=== PATIENT | female | born 1970 | race American Indian/Alaskan Native ===

== ENCOUNTER 2019-05-28 12:49 | Inpatient (IN) | payer MEDICARE ==
[2019-05-28] MEDS ORDERED: TYLENOL PO ONE (13:18)
[2019-05-28] MEDS ORDERED: ZOFRAN IV ONE (13:21)
[2019-05-28 13:45] LABS: Hematocrit 31.5 % (30.3-42.9); Hemoglobin 10.3 gm/dl (10.1-14.3); Mean Corpuscular HGB Conc 33 % (30-34); Mean Corpuscular Volume 90 fl (79-97); Platelet Count 132 K/mm3 (140-440); Red Blood Count 3.52 M/mm3 (3.65-5.03); Red Cell Distribution Width 16.2 % (13.2-15.2)
[2019-05-28] MEDS ORDERED: VANCOMYCIN/NS 1 GM/250 ML 1 GM/250 ML BAG IV ONE (14:04)
--- NOTE | 2019-05-28 14:08 | XRay Report ---
CHEST 1 VIEW INDICATION / CLINICAL INFORMATION: fever, cough. COMPARISON: None available. FINDINGS: SUPPORT DEVICES: Left central venous catheter HEART / MEDIASTINUM: No significant abnormality. LUNGS / PLEURA: No significant pulmonary or pleural abnormality. No pneumothorax. ADDITIONAL FINDINGS: No significant additional findings. IMPRESSION: No acute pulmonary or pleural abnormality. Left central venous catheter is in place. Signer Name: Ankit Gallagher MD FACBoyd Signed: 05/28/2019 2:04 PM Workstation Name: [id number]
--- NOTE | 2019-05-28 14:10 | Emergency Department Report ---
ED Fever HPI - General Chief Complaint: Nausea/Vomiting/Diarrhea Stated Complaint: N/V Time Seen by Provider: 05/28/19 13:32 Source: patient Exam Limitations: no limitations - History of Present Illness Initial Comments: 45-year-old female with a past medical history HIV, hypertension, end-stage renal disease on dialysis Saturday, , and Saturday presents to the hospital with complaints of fever 2 days. Patient's had headache, fever, one episode of vomiting, and a cough productive of mucus. She complains of lower back pain which is rated 10/10 in intensity and worse with movement. She also states she has not had a significant bowel movement in the last 3 weeks has had intermittent loose stool output. Early this morning she was [place] [facility] [place] generalized body aches, fever, and headache. She had a CBC, CMP, lactic acid, coags, and troponin performed. She also had a chest x-ray, EKG, a CT head performed. Diagnosed with a sinus headache (as per pt) and she was discharged on a Z-Tank. She still has prescription for Z-Tank has not yet filled the medication. She attempted to go to her dialysis center ([facility]) today but she was found to have a temperature 103.8 and vomited 2 times. He is sent here for evaluation. Patient does have HIV and takes antiretrovirals. 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 Pt does not have any urine output ED Review of Systems ROS: Stated complaint: N/V Other details as noted in HPI ED Past Medical Hx - Past Medical History Previous Medical History?: Yes Hx Hypertension: Yes Hx Renal Disease: Yes Hx HIV: Yes - Surgical History Past Surgical History?: No - Social History Smoking Status: Never Smoker Substance Use Type: None - Medications Home Medications: Home Medications Medication Instructions Recorded Confirmed Last Taken Type No Known Home Medications [No 05/28/19 05/28/19 Unknown History Reported Home Medications] ED Physical Exam - General Limitations: No Limitations - Other Other exam information: General: No limitations, patient is alert in no acute distress Head exam: Atraumatic, normocephalic Eyes exam: Normal appearance ENT: Moist mucous membrane, no thrush Neck exam: Normal inspection, full range of motion, no meningismus nontender Respiratory exam: Clear to auscultation bilateral, no wheezes, rales, crackles Cardiovascular: mild tach, reg rhythm, left chest wall dialysis access Abdomen: Soft, nondistended, and nontender, with normal bowel sounds, no rebound, or guarding Extremity: Full range of motion normal inspection no deformity Back: Normal Inspection, full range of motion, diffuse lower back tenderness including midline Neurologic: Alert, oriented x3, cranial nerves intact, no motor or sensory deficit Psychiatric: normal affect, normal mood Skin: Warm, dry, intact ED Course Vital Signs 05/28/19 05/28/19 05/28/19 12:54 12:57 13:00 Temperature 103.3 F H Pulse Rate 118 H 123 H 120 H Respiratory 28 H 26 H Rate Blood Pressure 125/66 125/66 Blood Pressure [Right] O2 Sat by Pulse 100 Oximetry 05/28/19 05/28/19 05/28/19 13:15 13:18 13:31 Temperature Pulse Rate 119 H 119 H Respiratory 28 H 24 15 Rate Blood Pressure 134/72 134/72 Blood Pressure [Right] O2 Sat by Pulse 100 Oximetry 05/28/19 05/28/19 05/28/19 13:45 14:01 14:15 Temperature Pulse Rate 118 H 122 H 119 H Respiratory 19 18 19 Rate Blood Pressure 134/72 134/72 134/72 Blood Pressure [Right] O2 Sat by Pulse Oximetry 05/28/19 05/28/19 14:31 14:45 Temperature 101.3 F H Pulse Rate 120 H 119 H Respiratory 25 H 27 H Rate Blood Pressure 134/72 Blood Pressure 134/72 [Right] O2 Sat by Pulse Oximetry - Consultations Consultation #1: 05/28/19 15:11 nephro consulted. will perform dialysis today ED Medical Decision Making - Lab Data Result diagrams: 05/28/19 13:19 05/28/19 13:19 Lab Results 05/28/19 05/28/19 05/28/19 Range/Units 13:19 13:19 13:19 WBC 9.2 (4.5-11.0) K/mm3 RBC 3.52 L (3.65-5.03) M/mm3 Hgb 10.3 (10.1-14.3) gm/dl Hct 31.5 (30.3-42.9) % MCV 90 (79-97) fl MCH 29 (28-32) pg MCHC 33 (30-34) % RDW 16.2 H (13.2-15.2) % Plt Count 132 L (140-440) K/mm3 Add Manual Diff Complete Total Counted 100 Seg Neutrophils % Tube [place]inder Hand Seg Neuts % (Manual) 92.0 H (40.0-70.0) % Band Neutrophils % 1.0 % Lymphocytes % (Manual) 3.0 L (13.4-35.0) % Reactive Lymphs % (Man) 1.0 % Monocytes % (Manual) 3.0 (0.0-7.3) % Eosinophils % (Manual) 0 (0.0-4.3) % Basophils % (Manual) 0 (0.0-1.8) % Metamyelocytes % 0 % Myelocytes % 0 % Promyelocytes % 0 % Blast Cells % 0 % Nucleated RBC % Not Reportable Seg Neutrophils # Man 8.5 H (1.8-7.7) K/mm3 Band Neutrophils # 0.1 K/mm3 Lymphocytes # (Manual) 0.3 L (1.2-5.4) K/mm3 Abs React Lymphs (Man) 0.1 K/mm3 Monocytes # (Manual) 0.3 (0.0-0.8) K/mm3 Eosinophils # (Manual) 0.0 (0.0-0.4) K/mm3 Basophils # (Manual) 0.0 (0.0-0.1) K/mm3 Metamyelocytes # 0.0 K/mm3 Myelocytes # 0.0 K/mm3 Promyelocytes # 0.0 K/mm3 Blast Cells # 0.0 K/mm3 WBC Morphology Not Reportable Hypersegmented Neuts Not Reportable Hyposegmented Neuts Not Reportable Hypogranular Neuts Not Reportable Smudge Cells Not Reportable Toxic Granulation Not Reportable Toxic Vacuolation Not Reportable Dohle Bodies Not Reportable Pelger-Huet Anomaly Not Reportable Dara Rods Not Reportable Platelet Estimate Consistent w auto Clumped Platelets Not Reportable Plt Clumps, EDTA Not Reportable Large Platelets Not Reportable Giant Platelets Rare Platelet Satelliting Not Reportable Plt Morphology Comment Not Reportable RBC Morphology Not Reportable Dimorphic RBCs Not Reportable Polychromasia Not Reportable Hypochromasia Few Poikilocytosis Not Reportable Anisocytosis Not Reportable Microcytosis Not Reportable Macrocytosis Few Spherocytes Not Reportable Pappenheimer Bodies Not Reportable Sickle Cells Not Reportable Target Cells Not Reportable Tear Drop Cells Not Reportable Ovalocytes Not Reportable Helmet Cells Not Reportable Zapata-Luckey Bodies Not Reportable [place] Rings Not Reportable Dorina Cells Not Reportable Bite Cells Not Reportable Crenated Cell Not Reportable Elliptocytes Not Reportable Acanthocytes (Spur) Not Reportable Rouleaux Not Reportable Hemoglobin C Crystals Not Reportable Schistocytes Not Reportable Malaria parasites Not Reportable Solomon Bodies Not Reportable Hem Pathologist Commnt No VBG pH (7.320-7.420) Sodium 132 L (137-145) mmol/L Potassium 5.6 H (3.6-5.0) mmol/L Chloride 89.5 L (98-107) mmol/L Carbon Dioxide 19 L (22-30) mmol/L Anion Gap 29 mmol/L BUN 66 H (7-17) mg/dL Creatinine 14.2 H (0.7-1.2) mg/dL Estimated GFR 3 ml/min BUN/Creatinine Ratio 5 % Glucose 91 (65-100) mg/dL POC Glucose (70-105) Lactic Acid 1.20 (0.7-2.0) mmol/L Calcium 8.2 L (8.4-10.2) mg/dL Total Bilirubin 0.30 (0.1-1.2) mg/dL AST 11 (5-40) units/L ALT 6 L (7-56) units/L Alkaline Phosphatase 108 (35-129) units/L Total Protein 8.3 H (6.3-8.2) g/dL Albumin 3.7 L (3.9-5) g/dL Albumin/Globulin Ratio 0.8 % Lipase (13-60) units/L HCG, Qual (Negative) 05/28/19 05/28/19 05/28/19 Range/Units 13:19 13:19 13:29 WBC (4.5-11.0) K/mm3 RBC (3.65-5.03) M/mm3 Hgb (10.1-14.3) gm/dl Hct (30.3-42.9) % MCV (79-97) fl MCH (28-32) pg MCHC (30-34) % RDW (13.2-15.2) % Plt Count (140-440) K/mm3 Add Manual Diff Total Counted Seg Neutrophils % Seg Neuts % (Manual) (40.0-70.0) % Band Neutrophils % % Lymphocytes % (Manual) (13.4-35.0) % Reactive Lymphs % (Man) % Monocytes % (Manual) (0.0-7.3) % Eosinophils % (Manual) (0.0-4.3) % Basophils % (Manual) (0.0-1.8) % Metamyelocytes % % Myelocytes % % Promyelocytes % % Blast Cells % % Nucleated RBC % Seg Neutrophils # Man (1.8-7.7) K/mm3 Band Neutrophils # K/mm3 Lymphocytes # (Manual) (1.2-5.4) K/mm3 Abs React Lymphs (Man) K/mm3 Monocytes # (Manual) (0.0-0.8) K/mm3 Eosinophils # (Manual) (0.0-0.4) K/mm3 Basophils # (Manual) (0.0-0.1) K/mm3 Metamyelocytes # K/mm3 Myelocytes # K/mm3 Promyelocytes # K/mm3 Blast Cells # K/mm3 WBC Morphology Hypersegmented Neuts Hyposegmented Neuts Hypogranular Neuts Smudge Cells Toxic Granulation Toxic Vacuolation Dohle Bodies Pelger-Huet Anomaly Dara Rods Platelet Estimate Clumped Platelets Plt Clumps, EDTA Large Platelets Giant Platelets Platelet Satelliting Plt Morphology Comment RBC Morphology Dimorphic RBCs Polychromasia Hypochromasia Poikilocytosis Anisocytosis Microcytosis Macrocytosis Spherocytes Pappenheimer Bodies Sickle Cells Target Cells Tear Drop Cells Ovalocytes Helmet Cells Zapata-Luckey Bodies [place] Rings Dorina Cells Bite Cells Crenated Cell Elliptocytes Acanthocytes (Spur) Rouleaux Hemoglobin C Crystals Schistocytes Malaria parasites Solomon Bodies Hem Pathologist Commnt VBG pH 7.356 (7.320-7.420) Sodium (137-145) mmol/L Potassium (3.6-5.0) mmol/L Chloride (98-107) mmol/L Carbon Dioxide (22-30) mmol/L Anion Gap mmol/L BUN (7-17) mg/dL Creatinine (0.7-1.2) mg/dL Estimated GFR ml/min BUN/Creatinine Ratio % Glucose (65-100) mg/dL POC Glucose (70-105) Lactic Acid (0.7-2.0) mmol/L Calcium (8.4-10.2) mg/dL Total Bilirubin (0.1-1.2) mg/dL AST (5-40) units/L ALT (7-56) units/L Alkaline Phosphatase (35-129) units/L Total Protein (6.3-8.2) g/dL Albumin (3.9-5) g/dL Albumin/Globulin Ratio % Lipase 36 (13-60) units/L HCG, Qual Negative (Negative) 05/28/19 Range/Units 14:55 WBC (4.5-11.0) K/mm3 RBC (3.65-5.03) M/mm3 Hgb (10.1-14.3) gm/dl Hct (30.3-42.9) % MCV (79-97) fl MCH (28-32) pg MCHC (30-34) % RDW (13.2-15.2) % Plt Count (140-440) K/mm3 Add Manual Diff Total Counted Seg Neutrophils % Seg Neuts % (Manual) (40.0-70.0) % Band Neutrophils % % Lymphocytes % (Manual) (13.4-35.0) % Reactive Lymphs % (Man) % Monocytes % (Manual) (0.0-7.3) % Eosinophils % (Manual) (0.0-4.3) % Basophils % (Manual) (0.0-1.8) % Metamyelocytes % % Myelocytes % % Promyelocytes % % Blast Cells % % Nucleated RBC % Seg Neutrophils # Man (1.8-7.7) K/mm3 Band Neutrophils # K/mm3 Lymphocytes # (Manual) (1.2-5.4) K/mm3 Abs React Lymphs (Man) K/mm3 Monocytes # (Manual) (0.0-0.8) K/mm3 Eosinophils # (Manual) (0.0-0.4) K/mm3 Basophils # (Manual) (0.0-0.1) K/mm3 Metamyelocytes # K/mm3 Myelocytes # K/mm3 Promyelocytes # K/mm3 Blast Cells # K/mm3 WBC Morphology Hypersegmented Neuts Hyposegmented Neuts Hypogranular Neuts Smudge Cells Toxic Granulation Toxic Vacuolation Dohle Bodies Pelger-Huet Anomaly Dara Rods Platelet Estimate Clumped Platelets Plt Clumps, EDTA Large Platelets Giant Platelets Platelet Satelliting Plt Morphology Comment RBC Morphology Dimorphic RBCs Polychromasia Hypochromasia Poikilocytosis Anisocytosis Microcytosis Macrocytosis Spherocytes Pappenheimer Bodies Sickle Cells Target Cells Tear Drop Cells Ovalocytes Helmet Cells Zapata-Luckey Bodies [place] Rings Dorina Cells Bite Cells Crenated Cell Elliptocytes Acanthocytes (Spur) Rouleaux Hemoglobin C Crystals Schistocytes Malaria parasites Solomon Bodies Hem Pathologist Commnt VBG pH (7.320-7.420) Sodium (137-145) mmol/L Potassium (3.6-5.0) mmol/L Chloride (98-107) mmol/L Carbon Dioxide (22-30) mmol/L Anion Gap mmol/L BUN (7-17) mg/dL Creatinine (0.7-1.2) mg/dL Estimated GFR ml/min BUN/Creatinine Ratio % Glucose (65-100) mg/dL POC Glucose 83 (70-105) Lactic Acid (0.7-2.0) mmol/L Calcium (8.4-10.2) mg/dL Total Bilirubin (0.1-1.2) mg/dL AST (5-40) units/L ALT (7-56) units/L Alkaline Phosphatase (35-129) units/L Total Protein (6.3-8.2) g/dL Albumin (3.9-5) g/dL Albumin/Globulin Ratio % Lipase (13-60) units/L HCG, Qual (Negative) - EKG Data -: EKG Interpreted by Nm EKG shows normal: sinus rhythm Rate: tachycardia (116) - Radiology Data Radiology results: report reviewed CHEST 1 VIEW INDICATION / CLINICAL INFORMATION: fever, cough. COMPARISON: None available. FINDINGS: SUPPORT DEVICES: Left central venous catheter HEART / MEDIASTINUM: No significant abnormality. LUNGS / PLEURA: No significant pulmonary or pleural abnormality. No pneumot horax. ADDITIONAL FINDINGS: No significant additional findings. IMPRESSION: No acute pulmonary or pleural abnormality. Left central venous catheter is in place. ABDOMEN 2 VIEWS INDICATION / CLINICAL INFORMATION: no significant bowel movement in weeks. COMPARISON: None available. FINDINGS: Nonspecific bowel gas pattern. No definite evidence of obstruction or pneumoperitoneum. - Medical Decision Making + fever, source unknown at this time IV vanc given due for dialysis today will be done by nephro received albuterol, calcium, insulin, glucose, and bicarbonate for mild hyperkalemia Hospital was informed for admission CT abdomen and pelvis pending at disposition chest and abdomen xray unremarkable - Differential Diagnosis pneumonia, osteomyelitis/abscess, viral syndrome, bacteremia, infected cath Critical Care Time: No Critical care attestation.: If time is entered above; I have spent that time in minutes in the direct care of this critically ill patient, excluding procedure time. ED Disposition Clinical Impression: Fever, ESRD needing dialysis, Hyperkalemia, HIV (human immunodeficiency virus infection) Disposition: OP ADMIT IP TO THIS HOSP Is pt being admited?: Yes Condition: Stable Time of Disposition: 14:56 (DR Dior/hosp)
[2019-05-28 14:14] LABS: Albumin 3.7 g/dL (3.9-5); Calcium 8.2 mg/dL (8.4-10.2)
[2019-05-28] MEDS ORDERED: D50W (25GM) Vial IV ONE (14:20)
[2019-05-28] MEDS ORDERED: CALCIUM GLUCONATE 1,000 MG in NACL 0.9% 100 ML IV ONE (14:20)
[2019-05-28] MEDS ORDERED: PROVENTIL IH ONE (14:20)
[2019-05-28] MEDS ORDERED: HumuLIN R IV ONE (14:20)
--- NOTE | 2019-05-28 14:27 | XRay Report ---
ABDOMEN 2 VIEWS INDICATION / CLINICAL INFORMATION: no significant bowel movement in weeks. COMPARISON: None available. FINDINGS: Nonspecific bowel gas pattern. No definite evidence of obstruction or pneumoperitoneum. Signer Name: Ankit Gallagher MD FACR Signed: 05/28/2019 2:23 PM Workstation Name: [id number]
[2019-05-28 14:39] LABS: Band Neutrophils # (Manual) 0.1 K/mm3; Basophils % (Manual) 0 % (0.0-1.8); Eosinophils % (Manual) 0 % (0.0-4.3); Total Cells Counted 100
[2019-05-28 14:40] LABS: Giant Platelets Rare; Hypochromasia Few; Macrocytosis Few; Platelet Estimate Consistent w Auto
[2019-05-28] MEDS ORDERED: D50W (25GM) Syringe IV ONE ×2 (14:53→15:00)
[2019-05-28] MEDS ORDERED: SODIUM CHLORIDE FLUSH SYRINGE 10 ML IV PRN (14:57)
[2019-05-28] MEDS ORDERED: ZOFRAN IV PRN (14:57)
[2019-05-28] MEDS ORDERED: PERCOCET 5/325 PO PRN (14:57)
--- NOTE | 2019-05-28 14:59 | History and Physical Report ---
History of Present Illness Chief complaint: I dont feel well, and I could not get dialysis. History of present illness: 49 YO Female with ESRD on HD(T,R,Sa), HTN, HIV presents to ED for evaluation. Pt states that she has experienced recurrent fever over the past 2 days, headache, nausea, a single episode of vomiting, and a cough productive of yellow sputum. Pt also reports lower back pain. Pt states that the pain in her lower back in 10, worsened with movement. Pt states that headache in mild, 2/10, diffuse, associated with seasonal allergies. Pt was seen and evaluated at another hospital and discharged with oral antibiotic therapy. Pt presents to [facility] for her routine scheduled dialysis, and was found to be ill appearing, with a fever to 103.8. EMS notified, and upon arrival the patient was found to be in distress and transported to [facility]. Pt seen and evaluated in ED and found to have ESRD, SIRS, Acidosis, and Hyperkalemia. Pt admitted to medical floor. Pt initiates on IV antibiotic therapy. Nephrology consulted in ED for urgent dialysis. Pt denies chills, CP, palpitations, NVD, Trauma, Hematuria, Dysuria, BRBPR, skin rash, or recent ill contacts. No prior admission for review. All listed medication reconciled at time of admission. Past History Past Medical History: ESRD, HIV/AIDS, hypertension Past Surgical History: Other (Permacath placement) Social history: single. denies: smoking, alcohol abuse, prescription drug abuse Family history: hypertension Medications and Allergies Allergies Allergy/AdvReac Type Severity Reaction Status Date / Time Penicillins Allergy Unknown Verified 05/28/19 14:24 Home Medications Medication Instructions Recorded Confirmed Last Taken Type No Known Home Medications [No 05/28/19 05/28/19 Unknown History Reported Home Medications] Active Meds: Active Medications Acetaminophen (Tylenol) 650 mg PO Q4H PRN PRN Reason: Pain MILD(1-3)/Fever >100.5/LUGO Dextrose (D50w (25gm) Syringe) 50 ml IV ONCE ONE Stop: 05/28/19 15:01 Vancomycin HCl (Vancomycin/Ns 1 Gm/250 Ml) 1 gm in 250 mls @ 167.007 mls/hr IV ONCE ONE; Protocol Stop: 05/28/19 15:33 Ondansetron HCl (Zofran) 4 mg IV Q8H PRN PRN Reason: Nausea And Vomiting Sodium Chloride (Sodium Chloride Flush Syringe 10 Ml) 10 ml IV BID PAULETTE Sodium Chloride (Sodium Chloride Flush Syringe 10 Ml) 10 ml IV PRN PRN PRN Reason: LINE FLUSH Review of Systems Constitutional: fever, no weight loss, no weight gain, no chills, no sweats, no night sweats Ears, nose, mouth and throat: no ear pain, no ear discharge, no tinnitis, no nose pain, no nasal congestion Breasts: no change in shape, no swelling, no mass Cardiovascular: no chest pain, no orthopnea, no palpitations, no rapid/irregular heart beat Respiratory: cough, cough with sputum, no excessive sputum, no hemoptysis, no shortness of breath, no dyspnea on exertion Gastrointestinal: nausea, vomiting, no abdominal pain Genitourinary Female: no pelvic pain, no flank pain, no menorrhagia, no dysuria, no urinary frequency, no urgency Rectal: no pain, no incontinence, no bleeding Musculoskeletal: low back pain, no neck stiffness, no neck pain, no shooting arm pain, no shooting leg pain, no leg numbness/tingling, no redness of joints Integumentary: no rash, no pruritis, no redness, no sores, no wounds Neurological: no paralysis, no weakness, no parathesias, no numbness, no seizures, no syncope, no tremors Psychiatric: no anxiety, no memory loss, no change in sleep habits, no insomnia, no hypersomnia, no change in appetite, no change in libido Endocrine: no cold intolerance, no heat intolerance, no polyphagia, no polyuria, no nocturia, no excessive sweating, no flushing Hematologic/Lymphatic: no easy bruising, no easy bleeding Allergic/Immunologic: no urticaria, no allergic rhinitis, no wheezing, no persis tent infections, no anaphylaxis Exam - Constitutional Vitals: Temp Pulse Resp BP Pulse Ox 103.3 F H 120 H 25 H 134/72 100 05/28/19 12:54 05/28/19 14:31 05/28/19 14:31 05/28/19 14:31 05/28/19 13:15 General appearance: Present: mild distress - EENT Eyes: Present: PERRL ENT: hearing intact, clear oral mucosa - Neck Neck: Present: supple, normal ROM - Respiratory Respiratory effort: normal Respiratory: bilateral: CTA - Cardiovascular Heart Sounds: Present: S1 & S2. Absent: rub, click - Extremities Extremities: pulses symmetrical, No edema Peripheral Pulses: within normal limits - Abdominal General gastrointestinal: Present: soft, non-tender, non-distended, normal bowel sounds Female genitourinary: Present: normal - Integumentary Integumentary: Present: clear, warm, dry - Musculoskeletal Musculoskeletal: strength equal bilaterally, other (lumbar spinal tenderness to deep palpation, no fluctuance, no mass) - Psychiatric Psychiatric: appropriate mood/affect, intact judgment & insight - Neurologic Neurologic: CNII-XII intact, moves all extremities Results - Labs CBC & Chem 7: 05/28/19 13:19 05/28/19 13:19 Labs: Abnormal lab results 05/28/19 05/28/19 Range/Units 13:19 13:19 RBC 3.52 L (3.65-5.03) M/mm3 RDW 16.2 H (13.2-15.2) % Plt Count 132 L (140-440) K/mm3 Seg Neuts % (Manual) 92.0 H (40.0-70.0) % Lymphocytes % (Manual) 3.0 L (13.4-35.0) % Seg Neutrophils # Man 8.5 H (1.8-7.7) K/mm3 Lymphocytes # (Manual) 0.3 L (1.2-5.4) K/mm3 Sodium 132 L (137-145) mmol/L Potassium 5.6 H (3.6-5.0) mmol/L Chloride 89.5 L (98-107) mmol/L Carbon Dioxide 19 L (22-30) mmol/L BUN 66 H (7-17) mg/dL Creatinine 14.2 H (0.7-1.2) mg/dL Calcium 8.2 L (8.4-10.2) mg/dL ALT 6 L (7-56) units/L Total Protein 8.3 H (6.3-8.2) g/dL Albumin 3.7 L (3.9-5) g/dL Assessment and Plan - Patient Problems (1) SIRS due to infectious process with acute organ dysfunction Current Visit: Yes Status: Acute Plan to address problem: Empiric IV antibiotic therapy, urinalysis, blood cultures, CBC, CMP, chest x ray, serial lactic acid (2) Acidosis Current Visit: Yes Status: Acute Plan to address problem: IVF resuscitation as tolerated, urgent dialysis, repeat bmp, repeat lactic acid (3) ESRD needing dialysis Current Visit: No Status: Acute Plan to address problem: Nephrology consulted in ED for urgent dialysis, strict I/O, monitor uop q shift, avoid nephrotoxic agents. (4) HIV (human immunodeficiency virus infection) Current Visit: No Status: Acute Qualifiers: HIV symptom status: symptomatic Qualified Code(s): B20 - Human immunodeficiency virus [HIV] disease Plan to address problem: Continue antiretroviral therapy, outpatient ID F/U care. (5) Hyperkalemia Current Visit: No Status: Acute Plan to address problem: kayelelate, calcium gluconate, urgent dialysis, NO EKG changes. (6) DVT prophylaxis Current Visit: Yes Status: Acute Plan to address problem: SCD to BLE while in bed, prophylactic heparin
[2019-05-28] MEDS ORDERED: NACL 0.9% 250ML 250 ML IV ONE (15:02)
[2019-05-28] MEDS ORDERED: VANCOMYCIN 1,250 MG in NACL 0.9% 250ML 250 ML IV ONE (17:00)
[2019-05-28] MEDS ORDERED: VANCOMYCIN PHARMACY TO DOSE IV SCH (17:00)
--- NOTE | 2019-05-28 17:55 | Consultation ---
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 She has had nausea and vomitting and chills . She has not seen an infectious disease specialist for several months. She has been on dialysis for several years. last dialysis was Saturday . She had a fever of 103.8F and had some vomitting and was sent to the hospital. Past History Past Medical History: ESRD, HIV/AIDS, hypertension Past Surgical History: Other (Permacath placement) Social history: single. denies: smoking, alcohol abuse, prescription drug abuse Family history: hypertension Medications and Allergies Allergies Allergy/AdvReac Type Severity Reaction Status Date / Time Penicillins Allergy Unknown Verified 05/28/19 14:24 Home Medications Medication Instructions Recorded Confirmed Last Taken Type No Known Home Medications [No 05/28/19 05/28/19 Unknown History Reported Home Medications] Active Meds: Active Medications Acetaminophen (Tylenol) 650 mg PO Q4H PRN PRN Reason: Pain MILD(1-3)/Fever >100.5/LUGO Vancomycin HCl 1,250 mg/ (Sodium Chloride) 275 mls @ 137.5 mls/hr IV ONCE ONE; Protocol Stop: 05/28/19 18:59 Ondansetron HCl (Zofran) 4 mg IV Q8H PRN PRN Reason: Nausea And Vomiting Oxycodone/Acetaminophen (Percocet 5/325) 1 tab PO Q6H PRN PRN Reason: Pain, Moderate (4-6) Sodium Chloride (Sodium Chloride Flush Syringe 10 Ml) 10 ml IV BID PAULETTE Sodium Chloride (Sodium Chloride Flush Syringe 10 Ml) 10 ml IV PRN PRN PRN Reason: LINE FLUSH Review of Systems Constitutional: fever, chills, anorexia, fatigue, weakness, no weight loss, no weight gain Ears, nose, mouth and throat: no deferred, no decreased hearing Breasts: no deferred Cardiovascular: dyspnea on exertion, no chest pain, no orthopnea Respiratory: cough, cough with sputum Gastrointestinal: nausea, vomiting, no abdominal pain Musculoskeletal: no neck stiffness, no neck pain Neurological: no head injury, no motor disturbance, no sensory deficit Psychiatric: no anxiety, no memory loss Endocrine: no cold intolerance, no heat intolerance Hematologic/Lymphatic: no easy bruising, no easy bleeding Exam - Vital Signs Vital signs: Vital Signs Temp Pulse Resp BP Pulse Ox 103.3 F H 118 H 28 H 125/66 100 05/28/19 12:54 05/28/19 12:54 05/28/19 12:54 05/28/19 12:54 05/28/19 12:54 - General Appearance General appearance: well-developed, well-nourished EENT: ATNC, PERRL, mucous membranes moist Neck: Present: neck supple Respiratory: Wheezes, Decreased Breath Sounds Heart: regular, tachycardia, S1S2 Gastrointestinal: Present: normal, normoactive bowel sounds, tenderness Integumentary: no rash Neurologic: alert and oriented x3, CN 3-12 intact Psychiatric: mood/affect appropriate Results - Lab Results 05/28/19 13:19 05/28/19 13:19 Most recent lab results Calcium 8.2 mg/dL (8.4-10.2) L 05/28/19 13:19 - Image Kidney/bladder ultrasound: other (I reviewed CXR with few patchy opacities. ) Assessment and Plan - Patient Problems (1) ESRD needing dialysis Current Visit: No Status: Acute Plan to address problem: ESRD on dialysis access: Left IJ perm cath -Will initiate Dialysis. - treatment time : 3.5hrs. (2) SIRS due to infectious process with acute organ dysfunction Current Visit: Yes Status: Acute Plan to address problem: SIRS due to infection with acute respiratory failure Fever ,tachycardia - has been started on antibiotics. received 1250mg of Vancomycin. check vancomycin level - Redose vancomycin as needed based on repeat vancomycin levels. (3) HIV (human immunodeficiency virus infection) Current Visit: No Status: Acute Qualifiers: HIV symptom status: symptomatic Qualified Code(s): B20 - Human immunodeficiency virus [HIV] disease Plan to address problem: HIV - Ensure HIV medications - CD4 count , viral load - consult infectious disease . -Surveillance for opportunistic infections. (4) Hyperkalemia Current Visit: No Status: Acute Plan to address problem: Hyperkalemia : received Insulin and dextrose - Will initiate dialysis. (5) Acidosis Current Visit: Yes Status: Acute Plan to address problem: Acidosis will intiate dialysis.
[2019-05-28] MEDS ORDERED: NACL 0.9 (PRIMING MACHINE ONLY DIALYSIS) MC ONE (19:42)
[2019-05-28 20:20] LABS: Hepatitis B Surface Antigen Non-Reactive (Negative); Hepatitis C Virus Antibody Non-Reactive (NonReactive)
[2019-05-28] MEDS: SODIUM CHLORIDE FLUSH SYRINGE 10 ML IV SCH (22:46)
[2019-05-28] MEDS: TYLENOL PO PRN (23:54)
[2019-05-29] MEDS: TYLENOL PO PRN ×2 (05:16→12:24)
[2019-05-29 07:20] LABS: Basophils % (Auto) 0.2 % (0.0-1.8); Hemoglobin 9.8 gm/dl (10.1-14.3); Monocytes # (Auto) 0.8 K/mm3 (0.0-0.8); Monocytes % (Auto) 7.2 % (0.0-7.3)
[2019-05-29 07:25] LABS: Hematocrit 29.5 % (30.3-42.9); Lymphocytes # (Auto) 0.6 K/mm3 (1.2-5.4); Lymphocytes % (Auto) 5.3 % (13.4-35.0); Mean Corpuscular HGB Conc 33 % (30-34); Mean Corpuscular Volume 89 fl (79-97); Red Blood Count 3.31 M/mm3 (3.65-5.03); Red Cell Distribution Width 16.3 % (13.2-15.2)
[2019-05-29 07:37] LABS: Albumin 3.4 g/dL (3.9-5); Calcium 8.4 mg/dL (8.4-10.2)
[2019-05-29 07:52] LABS: Platelet Count 94 K/mm3 (140-440)
--- NOTE | 2019-05-29 10:02 | Cat Scan Report ---
CT abdomen pelvis wo con INDICATION: b/l and midline lower back pain, vomit, fever esrd. TECHNIQUE: All CT scans at this location are performed using the following dose modulation technique: Automated exposure control. CONTRAST: None. COMPARISON: None available. CT abdomen: Evaluation the lung bases demonstrates patchy parenchymal change at the right lung base p osteriorly. Evaluation of the parenchymal organs demonstrates chronic atrophy of the kidneys. The right kidney co ntains a 5 mm nonobstructing stone. Splenomegaly measures 15.5 cm. The remaining parenchymal organs a re unremarkable. Negative for abdominal mass, fluid collection or inflammation. The bowel is not dilated or thickened. A fat-containing umbilical hernia is seen in the midline above the umbilicus. CT PELVIS: Negative for pelvic mass, fluid collection or inflammation. A low density, complex lesion at the cervix measures 3.5 cm. A normal appendix is identified. The bones demonstrate advanced changes of osteodystrophy including bony sclerosis and bony resorption due to secondary hyperparathyroidism greatest at the SI joints. Atherosclerotic calcification is noted at the aorta and its branches. IMPRESSION: 1. Chronic renal atrophy with secondary hyperparathyroidism and associated bony changes. 2. Fat-containing ventral hernia. 3. Indeterminate cervical lesion. HEALTH TEACHER evaluation is recommended. Signer Name: Brady Bear MD Signed: 05/29/2019 9:57 AM Workstation Name: [id number]
[2019-05-29] MEDS: SODIUM CHLORIDE FLUSH SYRINGE 10 ML IV SCH (12:26)
--- NOTE | 2019-05-29 13:01 | Progress Note ---
Assessment and Plan /Sepsis with bacteremia, POA Blood culture growing gram-positive cocci in cluster Continue Empiric IV antibiotic therapy with vancomycin, follow final blood cultures, monitor CBC and serial lactic acid /Metabolic Acidosis Likely prominences renal disease, monitor BMP, HD per renal /ESRD needing dialysis Nephrology consulted in ED for urgent dialysis, strict I/O, monitor uop q shift, avoid nephrotoxic agents. / HIV (human immunodeficiency virus infection) Continue antiretroviral therapy, outpatient ID F/U care. / Hyperkalemia s/p kayelelate, calcium gluconate, urgent dialysis, NO EKG changes. 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 She has had nausea and vomitting and chills. She has been on dialysis for several years. last dialysis was Saturday . She had a fever of 103.8F and had some vomitting and was sent to the hospital. Blood culture growing gram-positive cocci in cluster. Physical exam: GENERAL: well-developed and well-nourished female lying on bed appeared to be in no discomfort. HEENT: Normocephalic. Atraumatic. No conjunctival congestion or icterus. Patient has moist mucous membranes. NECK: Supple. Trachea midline. CHEST/LUNGS: Clear to auscultated bilaterally, breathing nonlabored. No wheezes crackles or rhonchi. Perm cath In place HEART/CARDIOVASCULAR: Regular in rate and rhythm. S1 and S2 positive. ABDOMEN: Abdomen is soft, nontender. Patient has normal bowel sounds. SKIN: There is no rash. Warm and dry. NEURO: No focal motor deficit. Follows command. MUSCULOSKELETAL: No joint effusion or tenderness. EXTRIMITY: No edema, no cyanosis or clubbing. PSYCH: Cooperative. Subjective Date of service: 05/29/19 Interval history: Patient seen and examined. Medical records and medication list reviewed. No acute event overnight noted by the RN. Patient denies any chest pain or difficulty breathing. Patient is tolerating diet. Still spiking high-grade temp Discussed plan of care at bedside with patient. Objective - Constitutional Vitals: Vital Signs - 12hr 05/29/19 05/29/19 05/29/19 02:14 03:31 04:58 Temperature 101.3 F H 104.6 F H Pulse Rate 127 H Respiratory 20 20 Rate Blood Pressure 128/60 O2 Sat by Pulse 96 Oximetry 05/29/19 05/29/19 05:16 06:41 Temperature 102.5 F H Pulse Rate Respiratory 22 Rate Blood Pressure O2 Sat by Pulse Oximetry - Labs CBC & Chem 7: 05/30/19 05:15 05/30/19 05:15 Labs: Abnormal lab results 05/28/19 05/28/19 05/28/19 Range/Units 13:19 13:19 16:02 WBC (4.5-11.0) K/mm3 RBC 3.52 L (3.65-5.03) M/mm3 Hgb (10.1-14.3) gm/dl Hct (30.3-42.9) % RDW 16.2 H (13.2-15.2) % Plt Count 132 L (140-440) K/mm3 Lymph % (Auto) (13.4-35.0) % Lymph # (1.2-5.4) K/mm3 Seg Neutrophils % (40.0-70.0) % Seg Neuts % (Manual) 92.0 H (40.0-70.0) % Lymphocytes % (Manual) 3.0 L (13.4-35.0) % Seg Neutrophils # (1.8-7.7) K/mm3 Seg Neutrophils # Man 8.5 H (1.8-7.7) K/mm3 Lymphocytes # (Manual) 0.3 L (1.2-5.4) K/mm3 Sodium 132 L (137-145) mmol/L Potassium 5.6 H (3.6-5.0) mmol/L Chloride 89.5 L (98-107) mmol/L Carbon Dioxide 19 L (22-30) mmol/L BUN 66 H (7-17) mg/dL Creatinine 14.2 H (0.7-1.2) mg/dL Glucose (65-100) mg/dL POC Glucose 154 H (70-105) Calcium 8.2 L (8.4-10.2) mg/dL ALT 6 L (7-56) units/L Total Protein 8.3 H (6.3-8.2) g/dL Albumin 3.7 L (3.9-5) g/dL 05/29/19 05/29/19 Range/Units 06:37 06:37 WBC 11.1 H (4.5-11.0) K/mm3 RBC 3.31 L (3.65-5.03) M/mm3 Hgb 9.8 L (10.1-14.3) gm/dl Hct 29.5 L (30.3-42.9) % RDW 16.3 H (13.2-15.2) % Plt Count 94 L (140-440) K/mm3 Lymph % (Auto) 5.3 L (13.4-35.0) % Lymph # 0.6 L (1.2-5.4) K/mm3 Seg Neutrophils % 87.5 H (40.0-70.0) % Seg Neuts % (Manual) (40.0-70.0) % Lymphocytes % (Manual) (13.4-35.0) % Seg Neutrophils # 9.2 H (1.8-7.7) K/mm3 Seg Neutrophils # Man (1.8-7.7) K/mm3 Lymphocytes # (Manual) (1.2-5.4) K/mm3 Sodium (137-145) mmol/L Potassium (3.6-5.0) mmol/L Chloride 95.1 L (98-107) mmol/L Carbon Dioxide (22-30) mmol/L BUN 37 H (7-17) mg/dL Creatinine 9.8 H (0.7-1.2) mg/dL Glucose 123 H (65-100) mg/dL POC Glucose (70-105) Calcium (8.4-10.2) mg/dL ALT (7-56) units/L Total Protein (6.3-8.2) g/dL Albumin 3.4 L (3.9-5) g/dL
--- NOTE | 2019-05-29 14:48 | Progress Note ---
Assessment and Plan - Patient Problems (1) ESRD needing dialysis Current Visit: No Status: Inactive Plan to address problem: ESRD on dialysis access: Left IJ perm cath -Will initiate Dialysis. - treatment time : 3.5hrs. (2) SIRS due to infectious process with acute organ dysfunction Current Visit: Yes Status: Acute Plan to address problem: SIRS due to infection with acute respiratory failure Fever ,tachycardia - has been started on antibiotics. received 1250mg of Vancomycin. check vancomycin level - Redose vancomycin as needed based on repeat vancomycin levels. (3) HIV (human immunodeficiency virus infection) Current Visit: No Status: Inactive Qualifiers: HIV symptom status: symptomatic Qualified Code(s): B20 - Human immunodeficiency virus [HIV] disease Plan to address problem: HIV - Ensure HIV medications - CD4 count , viral load - consult infectious disease . -Surveillance for opportunistic infections. (4) Hyperkalemia Current Visit: No Status: Inactive Plan to address problem: Hyperkalemia :resolved received Insulin and dextrose - continue dialysis on Saturday , , Saturday. (5) Acidosis Current Visit: Yes Status: Acute Plan to address problem: Acidosis will intiate dialysis. 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 She has had nausea and vomitting and chills . She has not seen an infectious disease specialist for several months. She has been on dialysis for several years. last dialysis was Saturday . She had a fever of 103.8F and had some vomitting and was sent to the hospital. Patient seen today denies any fevers or chills had dialysis yesterday . Denies any shortness of breath. Objective - Vital Signs Vital signs: Vital Signs - 12hr 05/29/19 05/29/19 05/29/19 03:31 04:58 05:16 Temperature 104.6 F H Pulse Rate 127 H Respiratory 20 20 22 Rate Blood Pressure 128/60 O2 Sat by Pulse 96 Oximetry 05/29/19 05/29/19 06:41 13:40 Temperature 102.5 F H Pulse Rate Respiratory Rate Blood Pressure O2 Sat by Pulse 97 Oximetry - General Appearance General appearance: well-developed, well-nourished EENT: ATNC, PERRL Neck: no JVD Respiratory: Present: Clear to Ascultation Cardiology: regular, S1S2 Gastrointestinal: normal, normoactive bowel sounds Integumentary: no rash Neurologic: alert and oriented x3, CN 3-12 intact Psychiatric: mood/affect appropriate - Lab 05/29/19 06:37 05/29/19 06:37 Most recent lab results Calcium 8.4 mg/dL (8.4-10.2) 05/29/19 06:37 - Imaging Chest x-ray: image reviewed (I reviewed CXR with few patchy opacities without overt edema. ) Medications & Allergies - Medications Allergies/Adverse Reactions: Allergies Penicillins Allergy (Verified 05/28/19 14:24) Unknown Home Medications: Home Medications Medication Instructions Recorded Confirmed Last Taken Type No Known Home Medications [No 05/28/19 05/28/19 Unknown History Reported Home Medications] Active Medications: Generic Name Dose Route Start Last Admin Trade Name Carlosq PRN Reason Stop Dose Admin Acetaminophen 650 mg 05/28/19 14:57 05/29/19 12:24 Tylenol PO 650 mg Q4H PRN Administration Pain MILD(1-3)/Fever >100.5/LUGO Ondansetron HCl 4 mg 05/28/19 14:57 05/28/19 21:03 Zofran IV 4 mg Q8H PRN Administration Nausea And Vomiting Oxycodone/Acetaminophen 1 tab 05/28/19 14:57 Percocet 5/325 PO Q6H PRN Pain, Moderate (4-6) Sodium Chloride 10 ml 05/28/19 22:00 05/29/19 12:26 Sodium Chloride Flush Syringe 10 Ml IV 10 ml BID PAULETTE Administration Sodium Chloride 10 ml 05/28/19 14:57 Sodium Chloride Flush Syringe 10 Ml IV PRN PRN LINE FLUSH
[2019-05-30] MEDS: SODIUM CHLORIDE FLUSH SYRINGE 10 ML IV SCH ×3 (06:22→22:48)
[2019-05-30 06:50] LABS: Basophils % (Auto) 0.4 % (0.0-1.8); Eosinophils # (Auto) 0.1 K/mm3 (0.0-0.4); Eosinophils % (Auto) 0.7 % (0.0-4.3); Hematocrit 28.3 % (30.3-42.9); Hemoglobin 9.4 gm/dl (10.1-14.3); Lymphocytes # (Auto) 0.5 K/mm3 (1.2-5.4); Lymphocytes % (Auto) 7.2 % (13.4-35.0); Mean Corpuscular HGB Conc 33 % (30-34); Mean Corpuscular Volume 90 fl (79-97); Monocytes # (Auto) 0.6 K/mm3 (0.0-0.8); Monocytes % (Auto) 8.4 % (0.0-7.3); Red Blood Count 3.16 M/mm3 (3.65-5.03); Red Cell Distribution Width 16.6 % (13.2-15.2)
[2019-05-30 06:52] LABS: Platelet Count 97 K/mm3 (140-440)
[2019-05-30 07:13] LABS: Calcium 8.2 mg/dL (8.4-10.2)
--- NOTE | 2019-05-30 09:25 | Progress Note ---
Assessment and Plan /Sepsis with bacteremia, POA Blood culture growing Staph aureus Continue Empiric IV antibiotic therapy with vancomycin, follow final blood cultures, monitor CBC and serial lactic acid Consult ID, obtain 2-D echocardiogram for possible vegetation Will also will consult IR to remove her PermCath Will obtain repeat blood culture /Metabolic Acidosis Likely prominences renal disease, monitor BMP, HD per renal /ESRD needing dialysis Nephrology consulted in ED for urgent dialysis, strict I/O, monitor uop q shift, avoid nephrotoxic agents. / HIV (human immunodeficiency virus infection) Continue antiretroviral therapy, outpatient ID F/U care. / Hyperkalemia s/p kayelelate, calcium gluconate, urgent dialysis, NO EKG changes. 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 She has had nausea and vomitting and chills. She has been on dialysis for several years. last dialysis was Saturday . She had a fever of 103.8F and had some vomitting and was sent to the hospital. Blood culture growing gram-positive cocci in cluster. Physical exam: GENERAL: well-developed and well-nourished female lying on bed appeared to be in no discomfort. HEENT: Normocephalic. Atraumatic. No conjunctival congestion or icterus. Patient has moist mucous membranes. NECK: Supple. Trachea midline. CHEST/LUNGS: Clear to auscultated bilaterally, breathing nonlabored. No wheezes crackles or rhonchi. Perm cath In place HEART/CARDIOVASCULAR: Regular in rate and rhythm. S1 and S2 positive. ABDOMEN: Abdomen is soft, nontender. Patient has normal bowel sounds. SKIN: There is no rash. Warm and dry. NEURO: No focal motor deficit. Follows command. MUSCULOSKELETAL: No joint effusion or tenderness. EXTRIMITY: No edema, no cyanosis or clubbing. PSYCH: Cooperative. Subjective Date of service: 05/30/19 Interval history: Patient seen and examined. Medical records and medication list reviewed. No acute event overnight noted by the RN. Patient denies any chest pain or difficulty breathing. Patient is tolerating diet. Mostly afebrile, Discussed plan of care at bedside with patient. Objective - Constitutional Vitals: Vital Signs - 12hr 05/29/19 05/29/19 05/30/19 21:28 22:00 04:52 Temperature 98.0 F 98.8 F Pulse Rate 92 H 94 H Pulse Rate [ 89 From Monitor] Respiratory 20 20 20 Rate Blood Pressure 123/70 104/56 O2 Sat by Pulse 98 97 Oximetry - Labs CBC & Chem 7: 05/30/19 05:15 05/30/19 05:15 Labs: Abnormal lab results 05/30/19 05/30/19 Range/Units 05:15 05:15 RBC 3.16 L (3.65-5.03) M/mm3 Hgb 9.4 L (10.1-14.3) gm/dl Hct 28.3 L (30.3-42.9) % RDW 16.6 H (13.2-15.2) % Plt Count 97 L (140-440) K/mm3 Lymph % (Auto) 7.2 L (13.4-35.0) % [place] % (Auto) 8.4 H (0.0-7.3) % Lymph # 0.5 L (1.2-5.4) K/mm3 Seg Neutrophils % 83.3 H (40.0-70.0) % Sodium 136 L (137-145) mmol/L Chloride 91.2 L (98-107) mmol/L BUN 55 H (7-17) mg/dL Creatinine 12.3 H (0.7-1.2) mg/dL Calcium 8.2 L (8.4-10.2) mg/dL
[2019-05-30] MEDS: HEPARIN SUB-Q SCH ×2 (10:16→22:47)
--- NOTE | 2019-05-30 10:31 | Progress Note ---
Assessment and Plan Impression * End-stage renal disease on maintenance hemodialysis * uremia * htn * anemia in esrd * HIV * sepsis * bactermemia * volume overload Recommendations * HD q TTHSAT * Patient clinically does not appear to be volume overloaded. * iv abx and hiv management per ID * strict i/os * uf with hd as tolerated * Avoid nephrotoxins * Binders with meals * Adjust diet and meds for ESRD state Subjective Date of service: 05/30/19 Principal diagnosis: esrd Interval history: resting in bed today Objective - Exam Narrative Exam: GENERAL: well-developed and well-nourished female lying on bed appeared to be in no discomfort. HEENT: Normocephalic. Atraumatic. No conjunctival congestion or icterus. Patient has moist mucous membranes. NECK: Supple. Trachea midline. CHEST/LUNGS: Clear to auscultated bilaterally, breathing nonlabored. No wheezes crackles or rhonchi. Perm cath In place HEART/CARDIOVASCULAR: Regular in rate and rhythm. S1 and S2 positive. ABDOMEN: Abdomen is soft, nontender. Patient has normal bowel sounds. SKIN: There is no rash. Warm and dry. NEURO: No focal motor deficit. Follows command. MUSCULOSKELETAL: No joint effusion or tenderness. EXTRIMITY: No edema, no cyanosis or clubbing. PSYCH: Cooperative. - Vital Signs Vital signs: Vital Signs - 12hr 05/30/19 04:52 Temperature 98.8 F Pulse Rate 94 H Respiratory 20 Rate Blood Pressure 104/56 O2 Sat by Pulse 97 Oximetry - Lab 05/30/19 05:15 05/30/19 05:15 Most recent lab results Calcium 8.2 mg/dL (8.4-10.2) L 05/30/19 05:15 Medications & Allergies - Medications Allergies/Adverse Reactions: Allergies Penicillins Allergy (Verified 05/28/19 14:24) Unknown Home Medications: Home Medications Medication Instructions Recorded Confirmed Last Taken Type No Known Home Medications [No 05/28/19 05/28/19 Unknown History Reported Home Medications] Active Medications: Generic Name Dose Route Start Last Admin Trade Name Freq PRN Reason Stop Dose Admin Acetaminophen 650 mg 05/28/19 14:57 05/29/19 12:24 Tylenol PO 650 mg Q4H PRN Administration Pain MILD(1-3)/Fever >100.5/LUGO Heparin Sodium (Porcine) 5,000 unit 05/30/19 10:00 05/30/19 10:16 Heparin SUB-Q Not Given Q12HR PAULETTE Vancomycin HCl 1 gm in 250 mls @ 167.007 mls/hr 05/30/19 17:00 Vancomycin/Ns 1 Gm/250 Ml IV 05/30/19 18:29 ONCE ONE Ondansetron HCl 4 mg 05/28/19 14:57 05/28/19 21:03 Zofran IV 4 mg Q8H PRN Administration Nausea And Vomiting Oxycodone/Acetaminophen 1 tab 05/28/19 14:57 Percocet 5/325 PO Q6H PRN Pain, Moderate (4-6) Sodium Chloride 10 ml 05/28/19 22:00 05/30/19 06:22 Sodium Chloride Flush Syringe 10 Ml IV Not Given BID PAULETTE Sodium Chloride 10 ml 05/28/19 14:57 Sodium Chloride Flush Syringe 10 Ml IV PRN PRN LINE FLUSH
[2019-05-30] MEDS ORDERED: VANCOMYCIN/NS 1 GM/250 ML 1 GM/250 ML BAG IV ONE (17:00)
[2019-05-31] MEDS: SODIUM CHLORIDE FLUSH SYRINGE 10 ML IV SCH ×2 (11:00→22:03)
[2019-05-31] MEDS: HEPARIN SUB-Q SCH ×2 (11:00→22:03)
--- NOTE | 2019-05-31 11:05 | Consultation ---
History of Present Illness - Reason for Consult Consult date: 05/31/19 Bacteremia, HIV Requesting physician: MAYLIN CELAYA - History of Present Illness This patient is a 49-year-old female with a past medical history of HTN, HIV, ESRD on hemodialysis via left IJ perm cath on T,R, Sa that presents to the ED on 05/28/19. with complaints of recurrent fever over the past 2 days, headache, nausea, a single episode of vomiting, productive cough of yellow sputum and lower back pain. She states that she was seen and evaluated at another hospital and discharged on oral antibiotic therapy. She presented at her dialysis center, [facility] in [place] and was found to be ill appearing, with a fever of 103.8. On admission WBC 9.2, Creatinine 9.8, Temperature 103.3, HR 123, BP 125/66. Chest xray showwed no consolidations. Abdominal xray showed no evidence of obstruction or pneumoperitoneum.. Abdomen and pelvis CT showed Chronic renal atrophy with secondary hyperparathyroidism and associated bony changes. Indeterminate cervical lesion. Blood cultures grew Staph aureus. Repeat blood cultures are in progress. Patient is a poor historian. States that she is unsure of when she was diagnosed with HIV, maybe 5 years ago, She states that she is currently on ART therapy and goes to the [facility]. She does not remember the name of her antiretrovi rals. She is also unaware of her CD4 count and viral load. She denies substance, alcohol or tobacco abuse. Review of Systems: General: no fever or chills. + nightsweats, no unintentional weight change, or change in appetite Cutaneous: no rash, pruritus Head: no headaches or injury Eyes: no changes in vision, eye pain, double vision Ears: no ear pain, ear discharge, ringing or hearing loss Nose: no nose bleeding, stuffiness Mouth & throat: no bleeding gums, no horseness, no dental problems, or swollen glands. + thrush Neck: no pain, node enlargement/lumps, tyroid enlargement or tenderness Respiratory: no cough, wheezing, sputum, hemoptysis, pleuritic chest pain Cardiovascular: no chest pain, leg edema, cyanosis, VALDEZ, orthopnea Musculoskeletal: no decreased joint motion, bone or joint pain, joint swelling, muscle aches Gastrointestinal: no nausea, vomiting, hematemesis, diarrhea, constipation, melena, bright red blood in stools, fecal incontinence, jaundice Genitourinary/Reproductive: no frequent urination, no dysuria, hematuria, incontinence Neurogical: no seizures, no headaches, no weakness, no paresthesias, no loss of speech or vision; no memory loss, no vertigo, no tremors, no numbness Psychiatric: stable mood; no excessive anxiety, sadness or moodiness Past History Past Medical History: ESRD, HIV/AIDS, hypertension Past Surgical History: Other (Permacath placement) Social history: single. denies: smoking, alcohol abuse, prescription drug abuse Family history: hypertension Medications and Allergies Allergies Allergy/AdvReac Type Severity Reaction Status Date / Time Penicillins Allergy Unknown Verified 05/28/19 14:24 Home Medications Medication Instructions Recorded Confirmed Last Taken Type Catapres-Tts 0.1MG Patch 0.1 patch TRANSDERMA QWEEK 05/31/19 05/31/19 1 Week Ago History ~05/24/19 Active Meds: Active Medications Acetaminophen (Tylenol) 650 mg PO Q4H PRN PRN Reason: Pain MILD(1-3)/Fever >100.5/LUGO Last Admin: 05/29/19 12:24 Dose: 650 mg Documented by: Heparin Sodium (Porcine) (Heparin) 5,000 unit SUB-Q Q12HR [facility] Last Admin: 05/31/19 11:00 Dose: 5,000 unit Documented by: Ondansetron HCl (Zofran) 4 mg IV Q8H PRN PRN Reason: Nausea And Vomiting Last Admin: 05/28/19 21:03 Dose: 4 mg Documented by: Oxycodone/Acetaminophen (Percocet 5/325) 1 tab PO Q6H PRN PRN Reason: Pain, Moderate (4-6) Sodium Chloride (Sodium Chloride Flush Syringe 10 Ml) 10 ml IV BID [facility] Last Admin: 05/31/19 11:00 Dose: 10 ml Documented by: Sodium Chloride (Sodium Chloride Flush Syringe 10 Ml) 10 ml IV PRN PRN PRN Reason: LINE FLUSH Physical Examination - Physical Exam Narrative exam: Constitutional: Alert, cooperative. No acute distress Head, Ears, Nose: Normocephalic, atraumatic. External ears, nose normal Eyes: Conjunctivae/corneas clear. No icterus. No ptosis. Neck: Supple, no meningeal signs Oral: dentition poor. thrush + on buccal mucosa and oropharynx. Cardiovascular: S1, S2 normal. Respiratory: Good air entry, clear to auscultation bilaterally GI: Soft, non-tender; bowel sounds normal. No peritoneal signs Musculoskeletal: No pedal edema, no cyanosis. Skin: No rash or abscess. Hem/Lymphatic: No palpable cervical or supraclavicular nodes. No lymphangitis Psych: Mood ok. Affect normal Neurological: Awake, alert, oriented. Lines: [facility] - Constitutional Vitals: Vital Signs Temp Pulse Resp BP Pulse Ox 98.7 F 91 H 20 130/85 99 05/31/19 05:42 05/31/19 05:42 05/31/19 05:42 05/31/19 05:42 05/31/19 05:42 Temperature -Last 24 Hours Temperature 98.7 F Temperature 98.4 F Temperature 98.5 F Temperature 98.0 F Temperature 98.8 F Results - Labs CBC & Chem 7: 05/30/19 05:15 05/30/19 05:15 - Imaging and Cardiology Chest x-ray: report reviewed (no consolidation) Abdominal x-ray: report reviewed (no evidence of obstruction or pneumoperitoneum) CT scan - abdomen: report reviewed (Chronic renal atrophy with secondary hype rparathyroidism and associated bony changes. Indeterminate cervical lesion) Assessment and Plan Cultures: 05/28/2019 Blood: Staph aureus 05/30/2019 Blood: in progress A/P: 49-year-old female with a past medical history of HTN, HIV, ESRD on hemnodialysis via left IJ perm cath on ,R, Sa that presents to the ED on 05/28/19. with complaints of recurrent fever over the past 2 days, headache, nausea, a single episode of vomiting, productive cough of yellow sputum and lower back pain. She states that she was seen and evaluated at another hospital and discharged on oral antibiotic therapy. She presented at her dialysis center , [facility] and was found to be ill appearing, with a fever of 103.8. Admitted with: 1. Sepsis on admission, evidenced by Fever and tachycardia. Etiology MSSA bacteremia. No leukocytosis. Chest xray no consolidations. Abdomen and pelvis CT showed indeterminate cervical lesion. Currently being treated with Vancomycin. 2. MSSA bacteremia: 4 out of 4 bottles. Repeat blood cultures in progress. Source not clear. ? permacath infection. Will need HD cath removed. TTE ordered. 4. HIV/AIDS: Unclear compliance, patient states she is on antiretrovirals, does not remember the name. Will obtain records from [facility]. Given her HIV/AIDS she is at risk for opportunistic infections, labs suggestive of lymphopenia . HIV likely AIDS. No clinical suspicion for PCP pnuemonia. Will gert CD4 count and viral load. 5. Oral Candidiasis: on buccal mucosa and oropharynx. Will start Flucanozole for 10 days. 6. ESRD on HD: renally dosed antibiotics. Nephrology following 7. PCN Allergy: remote. low risk of cross sensitivity to cephalosporin Recommendations: -Discontinue Vancomycin -Start Cefazolin 1 gm IV qPM -Start Fluconazole 200mg PO qday for 10 days -Order CD4 count and Viral Load -follow-up repeat blood cultures -follow-up TTE -will need HD cath removal -obtain records from [facility] for antiretrovirals [facility] M: [phone] O:[phone]
--- NOTE | 2019-05-31 11:42 | Progress Note ---
Assessment and Plan Impression * End-stage renal disease on maintenance hemodialysis * uremia * htn * anemia in esrd * HIV * sepsis * bactermemia * volume overload Recommendations * HD q TTHSAT * Patient clinically does not appear to be volume overloaded. * iv abx and hiv management per ID * needs perm cath exchange * strict i/os * uf with hd as tolerated * Avoid nephrotoxins * Binders with meals * Adjust diet and meds for ESRD state Subjective Date of service: 05/31/19 Principal diagnosis: esrd Interval history: resting in bed today Objective - Exam Narrative Exam: GENERAL: well-developed and well-nourished female lying on bed appeared to be in no discomfort. HEENT: Normocephalic. Atraumatic. No conjunctival congestion or icterus. Patient has moist mucous membranes. NECK: Supple. Trachea midline. CHEST/LUNGS: Clear to auscultated bilaterally, breathing nonlabored. No wheezes crackles or rhonchi. Perm cath In place HEART/CARDIOVASCULAR: Regular in rate and rhythm. S1 and S2 positive. ABDOMEN: Abdomen is soft, nontender. Patient has normal bowel sounds. SKIN: There is no rash. Warm and dry. NEURO: No focal motor deficit. Follows command. MUSCULOSKELETAL: No joint effusion or tenderness. EXTRIMITY: No edema, no cyanosis or clubbing. PSYCH: Cooperative. - Vital Signs Vital signs: Vital Signs - 12hr 05/31/19 05/31/19 05:42 11:10 Temperature 98.7 F 98.6 F Pulse Rate 91 H 85 Respiratory 20 12 Rate Blood Pressure 130/85 119/74 O2 Sat by Pulse 99 100 Oximetry - Lab 05/30/19 05:15 05/30/19 05:15 Most recent lab results Calcium 8.2 mg/dL (8.4-10.2) L 05/30/19 05:15 Medications & Allergies - Medications Allergies/Adverse Reactions: Allergies Penicillins Allergy (Verified 05/28/19 14:24) Unknown Home Medications: Home Medications Medication Instructions Recorded Confirmed Last Taken Type Catapres-Tts 0.1MG Patch 0.1 patch TRANSDERMA QWEEK 05/31/19 05/31/19 1 Week Ago History ~05/24/19 Active Medications: Generic Name Dose Route Start Last Admin Trade Name Freq PRN Reason Stop Dose Admin Acetaminophen 650 mg 05/28/19 14:57 05/29/19 12:24 Tylenol PO 650 mg Q4H PRN Administration Pain MILD(1-3)/Fever >100.5/LUGO Heparin Sodium (Porcine) 5,000 unit 05/30/19 10:00 05/31/19 11:00 Heparin SUB-Q 5,000 unit Q12HR PAULETTE Administration Ondansetron HCl 4 mg 05/28/19 14:57 05/28/19 21:03 Zofran IV 4 mg Q8H PRN Administration Nausea And Vomiting Oxycodone/Acetaminophen 1 tab 05/28/19 14:57 Percocet 5/325 PO Q6H PRN Pain, Moderate (4-6) Sodium Chloride 10 ml 05/28/19 22:00 05/31/19 11:00 Sodium Chloride Flush Syringe 10 Ml IV 10 ml BID PAULETTE Administration Sodium Chloride 10 ml 05/28/19 14:57 Sodium Chloride Flush Syringe 10 Ml IV PRN PRN LINE FLUSH
--- NOTE | 2019-05-31 14:08 | Progress Note ---
Assessment and Plan /Sepsis with bacteremia, POA Blood culture growing Staph aureus MSSA Continue Empiric IV antibiotic therapy with cefazolin, repeat blood cultures negative, monitor CBC and serial lactic acid Consulted ID, obtain 2-D echocardiogram for possible vegetation Will also will consult IR to remove her PermCath need abx setup with HD /Metabolic Acidosis Likely prominences renal disease, monitor BMP, HD per renal /ESRD needing dialysis Nephrology consulted in ED for urgent dialysis, strict I/O, monitor uop q shift, avoid nephrotoxic agents. / HIV (human immunodeficiency virus infection) Continue antiretroviral therapy, outpatient ID F/U care. / Hyperkalemia s/p kayelelate, calcium gluconate, urgent dialysis, NO EKG changes. 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 She has had nausea and vomitting and chills. She has been on dialysis for several years. last dialysis was Saturday . She had a fever of 103.8F and had some vomitting and was sent to the hospital. Blood culture growing gram-positive cocci in cluster. Physical exam: GENERAL: well-developed and well-nourished female lying on bed appeared to be in no discomfort. HEENT: Normocephalic. Atraumatic. No conjunctival congestion or icterus. Patient has moist mucous membranes. NECK: Supple. Trachea midline. CHEST/LUNGS: Clear to auscultated bilaterally, breathing nonlabored. No wheezes crackles or rhonchi. Perm cath In place HEART/CARDIOVASCULAR: Regular in rate and rhythm. S1 and S2 positive. ABDOMEN: Abdomen is soft, nontender. Patient has normal bowel sounds. SKIN: There is no rash. Warm and dry. NEURO: No focal motor deficit. Follows command. MUSCULOSKELETAL: No joint effusion or tenderness. EXTRIMITY: No edema, no cyanosis or clubbing. PSYCH: Cooperative. Subjective Date of service: 05/31/19 Principal diagnosis: esrd Interval history: Patient seen and examined. Medical records and medication list reviewed. No acute event overnight noted by the RN. Patient denies any chest pain or difficulty breathing. Patient is tolerating diet. Mostly afebrile, wants to go home - explain that going home is a risk to her life w/o abx setup and current permcath removal Discussed plan of care at bedside with patient. Objective - Constitutional Vitals: Vital Signs - 12hr 05/31/19 05/31/19 05:42 11:10 Temperature 98.7 F 98.6 F Pulse Rate 91 H 85 Respiratory 20 12 Rate Blood Pressure 130/85 119/74 O2 Sat by Pulse 99 100 Oximetry - Labs CBC & Chem 7: 06/01/19 00:21 05/30/19 05:15
[2019-05-31] MEDS: DIFLUCAN PO SCH (16:39)
[2019-05-31] MEDS ORDERED: ANCEF/NS 1 GM/50 ML 1 GM/50 ML BAG IV SCH (18:00)
[2019-05-31] MEDS: TYLENOL PO PRN (22:06)
[2019-06-01 01:24] LABS: Basophils % (Auto) 0.6 % (0.0-1.8); Eosinophils # (Auto) 0.1 K/mm3 (0.0-0.4); Hematocrit 28.2 % (30.3-42.9); Hemoglobin 9.3 gm/dl (10.1-14.3); Lymphocytes # (Auto) 0.6 K/mm3 (1.2-5.4); Lymphocytes % (Auto) 19.4 % (13.4-35.0); Mean Corpuscular HGB Conc 33 % (30-34); Mean Corpuscular Volume 90 fl (79-97); Monocytes # (Auto) 0.3 K/mm3 (0.0-0.8); Monocytes % (Auto) 9.6 % (0.0-7.3); Platelet Count 123 K/mm3 (140-440); Red Blood Count 3.13 M/mm3 (3.65-5.03); Red Cell Distribution Width 16.8 % (13.2-15.2)
[2019-06-01 05:57] VITALS: BP 146/90
--- NOTE | 2019-06-01 08:07 | Progress Note ---
Assessment and Plan Impression * End-stage renal disease on maintenance hemodialysis * uremia * htn * anemia in esrd * HIV * sepsis * bactermemia * volume overload Recommendations * HD qTTS * UF with hd as tolerated * IR consulted for permcath removal * Abx per ID * strict i/os * Avoid nephrotoxins * Binders with meals * Adjust diet and meds for ESRD state Subjective Date of service: 06/01/19 Principal diagnosis: esrd Objective - Vital Signs Vital signs: Vital Signs - 12hr 05/31/19 06/01/19 22:55 05:48 Temperature 98.2 F 98.3 F Pulse Rate 83 72 Respiratory 20 20 Rate Blood Pressure 154/98 146/90 O2 Sat by Pulse 96 100 Oximetry - Lab 06/01/19 00:21 05/30/19 05:15 Most recent lab results Calcium 8.2 mg/dL (8.4-10.2) L 05/30/19 05:15 Medications & Allergies - Medications Allergies/Adverse Reactions: Allergies Penicillins Allergy (Verified 05/28/19 14:24) Unknown Home Medications: Home Medications Medication Instructions Recorded Confirmed Last Taken Type Catapres-Tts 0.1MG Patch 0.1 patch TRANSDERMA QWEEK 05/31/19 05/31/19 1 Week Ago History ~05/24/19 Active Medications: Generic Name Dose Route Start Last Admin Trade Name Freq PRN Reason Stop Dose Admin Acetaminophen 650 mg 05/28/19 14:57 05/31/19 22:06 Tylenol PO 650 mg Q4H PRN Administration Pain MILD(1-3)/Fever >100.5/LUGO Fluconazole 200 mg 05/31/19 16:00 05/31/19 16:39 Diflucan PO 200 mg QDAY PAULETTE Administration Heparin Sodium (Porcine) 5,000 unit 05/30/19 10:00 05/31/19 22:03 Heparin SUB-Q Not Given Q12HR PAULETTE Cefazolin Sodium 1 gm in 50 mls @ 100 mls/hr 05/31/19 18:00 05/31/19 19:15 Ancef/Ns 1 Gm/50 Ml IV 100 mls/hr QPM PAULETTE Administration Protocol Ondansetron HCl 4 mg 05/28/19 14:57 05/28/19 21:03 Zofran IV 4 mg Q8H PRN Administration Nausea And Vomiting Oxycodone/Acetaminophen 1 tab 05/28/19 14:57 Percocet 5/325 PO Q6H PRN Pain, Moderate (4-6) Sodium Chloride 10 ml 05/28/19 22:00 05/31/19 22:03 Sodium Chloride Flush Syringe 10 Ml IV 10 ml BID PAULETTE Administration Sodium Chloride 10 ml 05/28/19 14:57 Sodium Chloride Flush Syringe 10 Ml IV PRN PRN LINE FLUSH
--- NOTE | 2019-06-01 09:05 | Event Note ---
Date: 06/01/19 Consult placed for RUDY but RUDY was not notified. Dr. Persaud contacted me to tell me the situation. Made patient NPO except meds. Will discuss options with patient for later today. Options are permcath removal and subsequent permcath placement with 3 weeks antibiotics or permcath exchange with 3 weeks antibiotics. Both options are reas onable according to KDOQI guidelines.
[2019-06-01] MEDS: DIFLUCAN PO SCH (10:00)
[2019-06-01] MEDS: TYLENOL PO PRN ×2 (10:00→14:16)
[2019-06-01] MEDS: HEPARIN SUB-Q SCH (10:02)
[2019-06-01] MEDS: SODIUM CHLORIDE FLUSH SYRINGE 10 ML IV SCH (10:02)
--- NOTE | 2019-06-01 11:14 | Progress Note ---
<CHINEDU FLYNN - Last Filed: 06/01/19 15:30> Assessment and Plan Cultures: 05/28/2019 Blood: Staph aureus 05/30/2019 Blood: no growth to date A/P: 49-year-old female with a past medical history of HTN, HIV, ESRD on hemnodialysis via left IJ perm cath on T,R, Sa that presents to the ED on 05/28/19. with complaints of recurrent fever over the past 2 days, headache, nausea, a single episode of vomiting, productive cough of yellow sputum and lower back pain. She states that she was seen and evaluated at another hospital and discharged on oral antibiotic therapy. She presented at her dialysis center , [facility] in [place] and was found to be ill appearing, with a fever of 103.8. Admitted with: 1. Sepsis on admission, Improved. Etiology MSSA bacteremia. No leukocytosis. Chest xray no consolidations. Abdomen and pelvis CT showed indeterminate cervical lesion. Currently being treated with Vancomycin. 2. MSSA bacteremia: 4 out of 4 bottles. Repeat blood cultures in progress. Source not clear. ? permacath infection. TTE shows no valvular vegetation. HD catheter exchange today. 4. HIV/AIDS: Unclear compliance, patient states she is on antiretrovirals, does not remember the name. Will obtain records from [facility]. Given her HIV/AIDS she is at risk for opportunistic infections, labs suggestive of lymphopenia . HIV likely AIDS. No clinical suspicion for PCP pnuemonia. Will follow-up CD4 and viral load. 5. Oral Candidiasis: on buccal mucosa and oropharynx. Continue Flucanozole for 10 days. 6. ESRD on HD: renally dosed antibiotics. Nephrology following 7. PCN Allergy: remote. low risk of cross sensitivity to cephalosporin Recommendations: -Continue Cefazolin 1 gm IV qPM -Continue Fluconazole 200mg PO qday for 10 days. -Follow-up CD4 count and Viral Load -follow-up repeat blood cultures -obtain records from [facility] for antiretrovirals -Anticipate discharge on cefazolin 2gms IV Saturday, 2gms and 3gms Saturday post HD for total 4 weeks ending 06/28/19 and Fluconazole 200 mg PO qday for 10 days ending 06/09/19 -order placed with case management -Follow up ID office in 2 weeks (sent to residential supervisor) Chinedu Flynn NP [facility] M: [phone] O:[phone] Subjective Date of service: 06/01/19 Principal diagnosis: esrd Interval history: Patient seen and examined. Reports no acute distress. No fevers. Objective - Exam Narrative Exam: Constitutional: Alert, cooperative. No acute distress Head, Ears, Nose: Normocephalic, atraumatic. External ears, nose normal Eyes: Conjunctivae/corneas clear. No icterus. No ptosis. Neck: Supple, no meningeal signs Oral: dentition poor. thrush + on buccal mucosa and oropharynx. Cardiovascular: S1, S2 normal. Respiratory: Good air entry, clear to auscultation bilaterally GI: Soft, non-tender; bowel sounds normal. No peritoneal signs Musculoskeletal: No pedal edema, no cyanosis. Skin: No rash or abscess. Hem/Lymphatic: No palpable cervical or supraclavicular nodes. No lymphangitis Psych: Mood ok. Affect normal Neurological: Awake, alert, oriented. Lines: [facility] - Constitutional Vitals: Vital Signs Temp Pulse Resp BP Pulse Ox 98.3 F 72 20 146/90 100 06/01/19 05:48 06/01/19 05:48 06/01/19 10:00 06/01/19 05:48 06/01/19 05:48 Temperature -Last 24 Hours Temperature 98.3 F Temperature 98.2 F Temperature 98.2 F - Labs CBC & Chem 7: 06/01/19 00:21 05/30/19 05:15 Labs: Abnormal lab results 06/01/19 Range/Units 00:21 WBC 3.3 L (4.5-11.0) K/mm3 RBC 3.13 L (3.65-5.03) M/mm3 Hgb 9.3 L (10.1-14.3) gm/dl Hct 28.2 L (30.3-42.9) % RDW 16.8 H (13.2-15.2) % Plt Count 123 L (140-440) K/mm3 [place] % (Auto) 9.6 H (0.0-7.3) % Lymph # 0.6 L (1.2-5.4) K/mm3 <BRENNEN BETANCOURT - Last Filed: 06/01/19 15:34> Assessment and Plan I have personally seen and evaluated this patient on 06/01/2019 with Chinedu Flynn NP. I have reviewed and confirmed the medical history, physical examination findings, pertinent lab data, microbiologic data & personally review ed the imaging. I evaluated the risk-benefit, side effect profile of anti- microbials and formulated the assessment and plan Will follow up CD4 and viral load when she follows up in clinic. Would consider changing her regimen to Descovy/Tivicay, as TAF proven safe in HD, though will leave that decision to her primary ID at [place]. Objective - Constitutional Vitals: Vital Signs Temp Pulse Resp BP Pulse Ox 98.3 F 72 20 146/90 100 06/01/19 05:48 06/01/19 10:00 06/01/19 14:16 06/01/19 05:48 06/01/19 05:48 Temperature -Last 24 Hours Temperature 98.3 F Temperature 98.2 F Temperature 98.2 F - Labs CBC & Chem 7: 06/01/19 00:21 05/30/19 05:15 Labs: Abnormal lab results 06/01/19 Range/Units 00:21 WBC 3.3 L (4.5-11.0) K/mm3 RBC 3.13 L (3.65-5.03) M/mm3 Hgb 9.3 L (10.1-14.3) gm/dl Hct 28.2 L (30.3-42.9) % RDW 16.8 H (13.2-15.2) % Plt Count 123 L (140-440) K/mm3 [place] % (Auto) 9.6 H (0.0-7.3) % Lymph # 0.6 L (1.2-5.4) K/mm3
--- NOTE | 2019-06-01 12:02 | Discharge Summary ---
Providers - Providers Date of Admission: 05/28/19 14:57 Date of discharge: 06/01/19 Attending physician: MAYLIN CELAYA 05/28/19 15:00 Consult to Physician [CONS] Urgent Comment: Consulting Provider: KORINA RIVAS Physician Instructions: Reason For Exam: esrd needing dialysis 05/30/19 09:17 Consult to Physician [CONS] Routine Comment: Consulting Provider: GENNY PADGETT Physician Instructions: Reason For Exam: bacteremia need Perm cath removed Consult to Physician [CONS] Routine Comment: Consulting Provider: SHEILA RIOS Physician Instructions: Reason For Exam: bacteremia [facility] Hospital[facility] Condition: Stable Pertinent studies: abdomen/pelvis CT abdominal xry Hospital course: Discharge diagnosis and management: /Sepsis with bacteremia, POA Blood culture growing Staph aureus MSSA Placed on Empiric IV antibiotic therapy with vanc then changed to cefazolin, repeat blood cultures negative, Consulted ID, 2-D echocardiogram negative for possible vegetation Consulted IR to remove her PermCath need abx setup with HD - cefazolin iv post HD for total 4 weeks /Metabolic Acidosis Likely prominences renal disease, monitor BMP, HD per renal /ESRD needing dialysis Nephrology consulted in ED for urgent dialysis, strict I/O, monitor uop q shift, avoid nephrotoxic agents. / HIV (human immunodeficiency virus infection) Continue antiretroviral therapy, outpatient ID F/U care. / Hyperkalemia s/p kayelelate, calcium gluconate, urgent dialysis, NO EKG changes. 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 She has had nausea and vomitting and chills. She has been on dialysis for several years. last dialysis was Saturday . She had a fever of 103.8F and had some vomitting and was sent to the hospital. Blood culture growing gram-positive cocci in cluster. Physical exam: GENERAL: well-developed and well-nourished female lying on bed appeared to be in no discomfort. HEENT: Normocephalic. Atraumatic. No conjunctival congestion or icterus. Patient has moist mucous membranes. NECK: Supple. Trachea midline. CHEST/LUNGS: Clear to auscultated bilaterally, breathing nonlabored. No wheezes crackles or rhonchi. Perm cath In place HEART/CARDIOVASCULAR: Regular in rate and rhythm. S1 and S2 positive. ABDOMEN: Abdomen is soft, nontender. Patient has normal bowel sounds. SKIN: There is no rash. Warm and dry. NEURO: No focal motor deficit. Follows command. MUSCULOSKELETAL: No joint effusion or tenderness. EXTRIMITY: No edema, no cyanosis or clubbing. PSYCH: Cooperative. Disposition: DC-01 TO HOME OR SELFCARE Time spent for discharge: 34 minutes Core Measure Documentation - Palliative Care Palliative Care/ Comfort Measures: Not Applicable - Core Measures Any of the following diagnoses?: none Exam - Constitutional Vitals: Temp Pulse Resp BP Pulse Ox 98.3 F 72 20 146/90 100 06/01/19 05:48 06/01/19 05:48 06/01/19 10:00 06/01/19 05:48 06/01/19 05:48 Plan Activity: advance as tolerated Weight Bearing Status: Weight Bear as Tolerated Diet: renal Wound: per your surgeon's advice Additional Instructions: need cefazolin iv post HD for total 4 weeks Follow up with: SARAH BETH EDUARDO MD [Primary Care Provider] - 7 Days Prescriptions: Fluconazole [Diflucan TAB] 200 mg PO QDAY #7 tablet
--- NOTE | 2019-06-01 12:36 | Operative Report ---
Operative Report Operative Report: EXAM: 1. Fluoroscopic guided exchange of a left internal jugular tunneled cuffed hemodialysis catheter. DATE: 06/01/19 INDICATION: Bacteremia with indwelling hemodialysis access requiring PermCath exchange or PermCath removal. Patient declines PermCath removal and will only allow for PermCath exchange without venography. MEDICATIONS: Please see nursing report for full details. SOCIAL SERVICE AGENCY DIRECTOR: GENNY PADGETT MD DEVICES: 27 cm tip to cuff 15 Fr dual lumen hemodialysis catheter ; existing catheter was a 27 cm tip to cuff dual lumen hemodialysis catheter CONTRAST: None. PROCEDURE: The risks, benefits, and alternatives were discussed and informed consent was obtained. The patient was transported to the angiography suite in satisfactory/stable condition and was transported onto the angiography table. The patient was prepped and draped in a sterile fashion. The existing PermCath was prepped and draped in a sterile fashion. Heparin was removed from the lumens and then saline was used to flush the lumens. A stiff angled Glidewire was advanced through each of the ports of the PermCath and advanced into the IVC. Over the 0.035 inch wire, the existing PermCath was removed. The wires were cleaned with ChloraPrep and the dermatotomy was cleaned with ChloraPrep. A new PermCath was advanced over the wire and position centrally under fluoroscopic guidance. 2-0 Ethilon suture was used to secure the catheter at the dermatotomy. The catheter was charged with heparin 1000 units per mL of space. Sterile dressing and Biopatch applied. The patient was transferred from the angiography suite back to the floor in stable condition. FINDINGS: 1. Excellent flow was obtained through the dialysis catheter with 20 mL syringes. 2. The new catheter tip is in the right atrium. IMPRESSION: 1. Successful fluoroscopic guided replacement of a left internal jugular tunneled cuffed hemodialysis catheter.
--- NOTE | 2019-06-01 12:36 | Consultation ---
History of Present Illness - Reason for Consult Consult date: 06/01/19 Permcath infection - History of Present Illness 49-year-old female with a past medical history of HTN, HIV, ESRD on hemnodial ysis via left IJ perm cath on T,R, Sa that presents to the ED on 05/28/19. with complaints of recurrent fever over the past 2 days, headache, nausea, a single episode of vomiting, productive cough of yellow sputum and lower back pain. She states that she was seen and evaluated at another hospital and discharged on oral antibiotic therapy. She presented at her dialysis center , [facility] and was found to be ill appearing, with a fever of 103.8. Vascular consulted for perm cath with infection. No tunnel infection. No exit site infection. Appears to be catheter infection with bacteremia. Discussed options with the patient. The patient was adamant that she needed to leave today, declined catheter removal, declined venography with perm cath exchange, and understands that her choices are not optimal. She understand she needs to be on antibiotics for 3 weeks. Past History Past Medical History: ESRD, HIV/AIDS, hypertension Past Surgical History: Other (Permacath placement) Social history: single. denies: smoking, alcohol abuse, prescription drug abuse Family history: hypertension Medications and Allergies Allergies Allergy/AdvReac Type Severity Reaction Status Date / Time Penicillins Allergy Unknown Verified 05/28/19 14:24 Home Medications Medication Instructions Recorded Confirmed Last Taken Type Catapres-Tts 0.1MG Patch 0.1 patch TRANSDERMA QWEEK 05/31/19 05/31/19 1 Week Ago History ~05/24/19 Fluconazole [Diflucan TAB] 200 mg PO QDAY #7 tablet 06/01/19 Unknown Rx Active Meds: Active Medications Acetaminophen (Tylenol) 650 mg PO Q4H PRN PRN Reason: Pain MILD(1-3)/Fever >100.5/LUGO Last Admin: 06/01/19 10:00 Dose: 650 mg Documented by: Fluconazole (Diflucan) 200 mg PO QDAY [facility] Stop: 06/09/19 10:01 Last Admin: 06/01/19 10:00 Dose: 200 mg Documented by: Heparin Sodium (Porcine) (Heparin) 5,000 unit SUB-Q Q12HR [facility] Last Admin: 06/01/19 10:02 Dose: Not Given Documented by: Cefazolin Sodium (Ancef/Ns 1 Gm/50 Ml) 1 gm in 50 mls @ 100 mls/hr IV QPM PAULETTE; Protocol Last Admin: 05/31/19 19:15 Dose: 100 mls/hr Documented by: Vancomycin HCl (Vancomycin/Ns 1 Gm/250 Ml) 1 gm in 250 mls @ 166.667 mls/hr IV PREOP ONE; Protocol Stop: 06/01/19 14:29 Ondansetron HCl (Zofran) 4 mg IV Q8H PRN PRN Reason: Nausea And Vomiting Last Admin: 05/28/19 21:03 Dose: 4 mg Documented by: Oxycodone/Acetaminophen (Percocet 5/325) 1 tab PO Q6H PRN PRN Reason: Pain, Moderate (4-6) Sodium Chloride (Sodium Chloride Flush Syringe 10 Ml) 10 ml IV BID PAULETTE Last Admin: 06/01/19 10:02 Dose: 10 ml Documented by: Sodium Chloride (Sodium Chloride Flush Syringe 10 Ml) 10 ml IV PRN PRN PRN Reason: LINE FLUSH Review of Systems All systems: negative (see HPI) Exam - Constitutional Vitals: Temp Pulse Resp BP Pulse Ox 98.3 F 72 20 146/90 100 06/01/19 05:48 06/01/19 10:00 06/01/19 10:00 06/01/19 05:48 06/01/19 05:48 General appearance: Present: no acute distress - EENT Eyes: Present: EOM intact ENT: hearing intact - Neck Neck: Present: other (no tunnel site infection/exit site infection, permcath appears intact without issue) - Respiratory Respiratory effort: normal - Psychiatric Psychiatric: other (slightly agitated, not very cooperative, appears to be A&Ox3, understands risks and benefits and alternatives) Results - Labs CBC & Chem 7: 06/01/19 00:21 05/30/19 05:15 Labs: Abnormal lab results 06/01/19 Range/Units 00:21 WBC 3.3 L (4.5-11.0) K/mm3 RBC 3.13 L (3.65-5.03) M/mm3 Hgb 9.3 L (10.1-14.3) gm/dl Hct 28.2 L (30.3-42.9) % RDW 16.8 H (13.2-15.2) % Plt Count 123 L (140-440) K/mm3 [place] % (Auto) 9.6 H (0.0-7.3) % Lymph # 0.6 L (1.2-5.4) K/mm3 Assessment and Plan 49-year-old female with past medical history of HIV, end-stage renal disease with catheter dependence with history of 7 years of catheter dependence without adequate graft or fistula creation for dialysis due to a variety of factors including the of some of her children, and family members who now presents with prone Infection. Discussed options with the patient, but the only option she was willing to accept was a PermCath exchange because she has to leave the hospital today no matter what. She was not willing to allow venography to be performed unless the catheter is malfunctioning after the exchange due to a history of nausea and vomiting with contrast. She will only allow venography and angioplasty of the probable SVC stenosis and fibrin sheath which will likely be present given her 7 years of catheter dependence unless she has a malfunctioning catheter after the exchange. Discussed compliance with the patient. The patient will follow-up after completing her vein mapping study for dialysis access creation. I explained to her she will likely need a venogram prior to dialysis access duration which she understands. Card provided. Explained she will need 3 weeks of antibiotics with a permcath exchange. She understands.
[2019-06-01] MEDS ORDERED: SOLU-Medrol ONE (12:37)
[2019-06-01] MEDS ORDERED: BENADRYL ONE (12:37)
[2019-06-01] MEDS ORDERED: NACL 0.9% 250ML 250 ML ONE (12:37)
[2019-06-01] MEDS ORDERED: HEPARIN/NS 5000 UNIT/500ML(CATH LAB) 500 ML IR ONE (12:37)
[2019-06-01] MEDS ORDERED: PEPCID IV ONE (12:42)
[2019-06-01] MEDS ORDERED: VANCOMYCIN/NS 1 GM/250 ML 1 GM/250 ML BAG IV ONE (13:00)
[2019-06-01] MEDS: XYLOCAINE 1%/ EPI 1:100,000 INFILTRATI ONE ×2 (13:17→13:18)
[2019-06-01] MEDS: HEPARIN 10,000 UNITS/10 ML ONE ×2 (13:26→13:27)
--- NOTE | 2019-06-01 16:27 | Vascular Lab Report ---
DOPPLER ULTRASOUND UPPER EXTREMITY VENOUS MAPPING, BILATERAL INDICATION: vein mapping upper extremities ESRD TECHNIQUE: Grayscale, color and spectral Doppler imaging of the venous system of the right and left upper extrem ities was performed. COMPARISON: None available. FINDINGS: RIGHT UPPER EXTREMITY: Internal jugular vein: Patent, 9 mm in diameter. Subclavian Vein: Patent, 5 mm in diameter. Axillary Vein: Patent, 7 mm in diameter. Cephalic Vein (Diameter in mm): - Upper Arm: 4 - Mid Arm: 3 - Antecubital: 4 - Upper Forearm: 2 - Mid Forearm: 3 - Wrist: 2 Basilic Vein (Diameter in mm): - Upper Arm: 5 - Mid Arm: 5 - Antecubital: 4 - Upper Forearm: 3 - Mid Forearm: 2 - Wrist: 2 Peak systolic velocity within the radial artery is 39 cm/s and peak systolic velocity within the brac hial artery is 62 cm/s. LEFT UPPER EXTREMITY: Internal jugular vein: Patent, 7 mm in diameter. Subclavian Vein: Patent, 5 mm in diameter. Axillary Vein: Patent, 4 mm in diameter. Cephalic Vein (Diameter in mm): - Upper Arm: 4 - Mid Arm: 4 - Antecubital: 4 - Upper Forearm: 2 - Mid Forearm: 2 - Wrist: 1 Basilic Vein (Diameter in mm): - Upper Arm: 4 - Mid Arm: 4 - Antecubital: 3 - Upper Forearm: 2 - Mid Forearm: 1 - Wrist: 1 Peak systolic velocity within the radial artery is 33 cm/s and peak systolic velocity within the brac hial artery is 44 cm/s. Additional Findings: None. IMPRESSION: 1. Upper extremity venous mapping as above. Signer Name: Luciano Baker MD Signed: 06/01/2019 4:23 PM Workstation Name: [id number]
[2019-06-03 15:05] LABS: HIV-1 RNA QN PCR 4.47 Log cps/mL
== END 2019-06-01 16:28 | disposition home or self-care (01) | DRG 974 ==
LOC: ED 12:49 → 3A 14:57
PROVIDERS: ADMIT Internal Medicine; ATTEND Internal Medicine
PROC: 5A1D70Z Performance of Urinary Filtration, Intermittent, Less than 6 Hours Per Day (ICD-10-PCS; 2019-05-28)
PROC: 5A1D70Z Performance of Urinary Filtration, Intermittent, Less than 6 Hours Per Day (ICD-10-PCS; 2019-05-30)
PROC: 0J2TXYZ Change Other Device in Trunk Subcutaneous Tissue and Fascia, External Approach (ICD-10-PCS; principal; 2019-06-01)
DX: A41.01 Sepsis due to Methicillin susceptible Staphylococcus aureus (principal); N18.6 End stage renal disease; B20 Human immunodeficiency virus [HIV] disease; J96.00 Acute respiratory failure, unspecified whether with hypoxia or hypercapnia; E87.2 Acidosis; I12.0 Hypertensive chronic kidney disease with stage 5 chronic kidney disease or end stage renal disease; B37.0 Candidal stomatitis; D63.1 Anemia in chronic kidney disease; E87.70 Fluid overload, unspecified; E87.5 Hyperkalemia; Z99.2 Dependence on renal dialysis; Z82.49 Family history of ischemic heart disease and other diseases of the circulatory system; Z88.0 Allergy status to penicillin
CPT/HCPCS: 36415; 36581; 71045; 74019; 74176; 77001; 80048; 80053; 80074; 80202; 82024; 82140; 82805; 82962; 83690; 84703; 85007; 85025; 87040; 87076; 87186; 87536; 93005; 93010; 93306; 93970; 96374; G0378; C1750; C1769; J0610; J0690; J1200; J1644; J1815; J2405; J2930; J3370; J7030; J7050

== ENCOUNTER 2021-01-30 19:28 | Observation (INO) | payer MEDICARE ==
--- NOTE | 2021-01-30 22:28 | Emergency Department Report ---
ED General Adult HPI - General Chief complaint: Nausea/Vomiting/Diarrhea Stated complaint: NAUSEA & VOMITING Time Seen by Provider: 01/30/21 22:10 Source: patient, EMS Mode of arrival: Ambulatory Limitations: No Limitations - History of Present Illness Initial comments: 50-year-old female, history of ESRD (TTS dialysis schedule), HIV, hypertension, anxiety, presents to ED for evaluation. Patient states she feels as if she is experiencing fluid overload. Patient states she was last dialyzed 2 days ago. Patient reports this morning she awoke with with shortness of breath, nausea and vomiting. Patient states she has been feeling very anxious. Reports anxiety is unrelieved with her Buspar. Patient reports this often happens when she is in fluid overload. Patient reports swelling to her hands. -: This morning Consistency: intermittent Worsens with: medication Associated Symptoms: nausea/vomiting, shortness of breath. denies: chest pain, cough, fever/chills Treatments Prior to Arrival: none - Related Data Home Medications Medication Instructions Recorded Confirmed Last Taken Ergocalciferol [Vitamin D2] 50,000 units PO QDAY 06/07/20 06/07/20 Unknown busPIRone [Buspar] 5 mg PO QDAY 06/07/20 06/07/20 Unknown carvediloL [Coreg] 25 mg PO QDAY 06/07/20 06/07/20 Unknown cloNIDine-TTS PATCH [Catapres-Tts 0.1 mg TD QDAY 06/07/20 06/07/20 Unknown 0.1MG Patch] lisinopriL [Zestril TAB] 20 mg PO QDAY 06/07/20 06/07/20 Unknown Previous Rx's Medication Instructions Recorded Last Taken Type Fluconazole [Diflucan TAB] 200 mg PO QDAY #7 tablet 06/09/20 Unknown Rx levoFLOXacin [Levaquin TAB] 500 mg PO QDAY #5 tablet 06/09/20 Unknown Rx Allergies Allergy/AdvReac Type Severity Reaction Status Date / Time Penicillins Allergy Unknown Verified 05/28/19 14:24 ED Review of Systems ROS: Stated complaint: NAUSEA & VOMITING Other details as noted in HPI Comment: All other systems reviewed and negative Constitutional: denies: fever Respiratory: shortness of breath. denies: cough Cardiovascular: denies: chest pain, edema Gastrointestinal: nausea, vomiting Psychiatric: anxiety ED Past Medical Hx - Past Medical History Previous Medical History?: Yes Hx Hypertension: Yes Hx Renal Disease: Yes (tue, thurs, sat) Hx HIV: Yes - Surgical History Past Surgical History?: Yes Additional Surgical History: diaylsis shunt to left chest - Social History Smoking Status: Unknown if ever smoked - Medications Home Medications: Home Medications Medication Instructions Recorded Confirmed Last Taken Type Ergocalciferol [Vitamin D2] 50,000 units PO QDAY 06/07/20 06/07/20 Unknown History busPIRone [Buspar] 5 mg PO QDAY 06/07/20 06/07/20 Unknown History carvediloL [Coreg] 25 mg PO QDAY 06/07/20 06/07/20 Unknown History cloNIDine-TTS PATCH [Catapres-Tts 0.1 mg TD QDAY 06/07/20 06/07/20 Unknown History 0.1MG Patch] lisinopriL [Zestril TAB] 20 mg PO QDAY 06/07/20 06/07/20 Unknown History Fluconazole [Diflucan TAB] 200 mg PO QDAY #7 tablet 06/09/20 Unknown Rx levoFLOXacin [Levaquin TAB] 500 mg PO QDAY #5 tablet 06/09/20 Unknown Rx ED Physical Exam - General Limitations: No Limitations General appearance: alert, in no apparent distress - Head Head exam: Present: atraumatic, normocephalic - Eye Eye exam: Present: normal appearance, EOMI - ENT ENT exam: Present: mucous membranes moist - Neck Neck exam: Present: normal inspection - Respiratory Respiratory exam: Present: normal lung sounds bilaterally. Absent: respiratory distress, wheezes, rales - Cardiovascular Cardiovascular Exam: Present: regular rate, normal rhythm - GI/Abdominal GI/Abdominal exam: Present: soft. Absent: distended, tenderness - Extremities Exam Extremities exam: Present: normal inspection. Absent: pedal edema - Neurological Exam Neurological exam: Present: alert, oriented X3 - Psychiatric Psychiatric exam: Present: anxious - Skin Skin exam: Present: warm, dry, intact, normal color ED Course Vital Signs 01/30/21 01/30/21 01/30/21 20:54 22:44 22:47 Temperature 98.0 F Pulse Rate 78 Respiratory 16 18 Rate Blood Pressure 178/90 Blood Pressure [Right] O2 Sat by Pulse 99 99 Oximetry 01/30/21 01/30/21 01/30/21 22:49 23:00 23:30 Temperature Pulse Rate 79 Respiratory 18 Rate Blood Pressure 185/53 153/69 Blood Pressure 185/53 [Right] O2 Sat by Pulse 99 98 98 Oximetry 01/31/21 01/31/21 00:00 00:30 Temperature Pulse Rate Respiratory Rate Blood Pressure 184/79 148/44 Blood Pressure [Right] O2 Sat by Pulse 99 99 Oximetry - Consultations Consultation #1: 01/31/21 00:[address] Parra. States he will dialyze patient in the morning. ED Medical Decision Making - Lab Data Result diagrams: 01/30/21 22:32 01/30/21 22:32 - Radiology Data Radiology results: report reviewed, image reviewed - Medical Decision Making 50-year-old female, on dialysis, presents to ED with anxious feeling, shortness of breath, feeling as if she is in fluid overload. Patient states she has been restless, unrelieved with her BuSpar. States this usually happens when she needs to be dialyzed. Patient states she does not feel comfortable home. Blood pressure is elevated. Patient reports some shortness of breath, however no edema present on chest x-ray. O2 sats are normal. Potassium is elevated at 5.5. Patient has been given hyperkalemia cocktail, along with antihypertensives. I have spoken with Dr. Parar, felting machine operator helper, who agrees to dialyze patient in the morning. Critical Care Time: Yes Critical care time in (mins) excluding proc time.: 35 Critical care attestation.: If time is entered above; I have spent that time in minutes in the direct care of this critically ill patient, excluding procedure time. Critical Care Time: 35 min ED Disposition Clinical Impression: End-stage renal disease needing dialysis, Hypertensive urgency, Hyperkalemia Disposition: OP ADMIT IP TO THIS HOSP Is pt being admited?: Yes Condition: Stable Referrals: PRIMARY CARE, [Primary Care Provider] - 3-5 Days Time of Disposition: 00:42
[2021-01-30 22:54] LABS: Hematocrit 29.8 % (30.3-42.9); Mean Corpuscular HGB Conc 33 % (30-34); Mean Corpuscular Volume 90 fl (79-97); Platelet Count 187 K/mm3 (140-440); Red Blood Count 3.32 M/mm3 (3.65-5.03); Red Cell Distribution Width 16.4 % (13.2-15.2)
[2021-01-30 22:58] LABS: Basophils % (Auto) 0.9 % (0.0-1.8); Eosinophils # (Auto) 0.3 K/mm3 (0.0-0.4); Eosinophils % (Auto) 6.2 % (0.0-4.3); Lymphocytes # (Auto) 1.3 K/mm3 (1.2-5.4); Lymphocytes % (Auto) 25.2 % (13.4-35.0); Monocytes # (Auto) 0.6 K/mm3 (0.0-0.8); Monocytes % (Auto) 10.5 % (0.0-7.3)
[2021-01-30 23:05] LABS: Calcium 8.7 mg/dL (8.4-10.2)
[2021-01-30] MEDS ORDERED: DEXTROSE 50% IN WATER (25GM) 50 ML SYRINGE IV ONE (23:39)
[2021-01-30] MEDS ORDERED: INSULIN REGULAR, HUMAN 100 UNITS/1 ML IV ONE (23:39)
[2021-01-30] MEDS ORDERED: SODIUM POLYSTYRENE 15 GM/60 ML ORAL LIQD PO ONE (23:40)
[2021-01-30] MEDS ORDERED: CALCIUM CHLORIDE 1,000 MG/10 ML SYRINGE IV ONE (23:41)
--- NOTE | 2021-01-31 00:13 | XRay Report ---
CHEST PA AND LATERAL VIEWS INDICATION: sob. COMPARISON: 06/07/2020 FINDINGS: Support devices: Unchanged. Heart: Within normal limits and unchanged Lungs/Pleura: No acute pulmonary or pleural findings. Diffuse pulmonary edema on the previous exam ignacio s cleared. IMPRESSION: 1. No active disease. Signer Name: Farhan Pham MD Signed: 01/31/2021 12:08 AM Workstation Name: [id number]
[2021-01-31] MEDS ORDERED: CALCIUM GLUCONATE 1,000 MG in SODIUM CHLORIDE 0.9% 100 ML IV ONE (00:35)
[2021-01-31] MEDS ORDERED: hydrALAZINE 20 MG/1 ML INJ IV ONE (00:39)
--- NOTE | 2021-01-31 01:10 | History and Physical Report ---
History of Present Illness Date of examination: 01/31/21 Date of admission: 01/31/21 00:50 Chief complaint: ESRD Fluid overload Hypertension History of present illness: 50-year-old female, history of ESRD (TTS dialysis schedule), HIV, hypertension, anxiety, presents to ED for evaluation. Patient states she feels as if she is experiencing fluid overload. Patient states she was last dialyzed 2 days ago. Patient reports this morning she awoke with with shortness of breath, nausea and vomiting. Patient states she has been feeling very anxious. Reports anxiety is unrelieved with her Buspar. Patient reports this often happens when she is in fluid overload. Patient reports swelling to her hands. Patient ED work-up showed WBC 5.5, hemoglobin 10.0, sodium 134, potassium 5.5 Creatinine 12.6, glucose 98, calcium 8.7 Chest x-ray no acute finding. Patient seen in the ED at bedside. Patient is alert and oriented x3. Patient says she can with fluid overload but denied missing hemodialysis treatment. I reviewed the lab, medication record, and vital signs Product Marketing Consultant consulted -hemodialysis in the morning. For elevated potassium, patient was given dextrose and insulin in the ED Past History Past Medical History: ESRD, hypertension Past Surgical History: No surgical history Social history: lives with family Family history: diabetes, hypertension (grand mother) Medications and Allergies Allergies Allergy/AdvReac Type Severity Reaction Status Date / Time Penicillins Allergy Unknown Verified 05/28/19 14:24 Home Medications Medication Instructions Recorded Confirmed Last Taken Type Ergocalciferol [Vitamin D2] 50,000 units PO QDAY 06/07/20 06/07/20 Unknown History busPIRone [Buspar] 5 mg PO QDAY 06/07/20 06/07/20 Unknown History carvediloL [Coreg] 25 mg PO QDAY 06/07/20 06/07/20 Unknown History cloNIDine-TTS PATCH [Catapres-Tts 0.1 mg TD QDAY 06/07/20 06/07/20 Unknown History 0.1MG Patch] lisinopriL [Zestril TAB] 20 mg PO QDAY 06/07/20 06/07/20 Unknown History Fluconazole [Diflucan TAB] 200 mg PO QDAY #7 tablet 06/09/20 Unknown Rx levoFLOXacin [Levaquin TAB] 500 mg PO QDAY #5 tablet 06/09/20 Unknown Rx Review of Systems Constitutional: fatigue, weakness, other (facial edema-fluid overload) Ears, nose, mouth and throat: no epistaxis Breasts: no mass Cardiovascular: edema, high blood pressure, no chest pain Respiratory: shortness of breath Gastrointestinal: no melena Rectal: no pain Musculoskeletal: no neck stiffness, no neck pain Integumentary: no rash, no pruritis Neurological: no head injury, no transient paralysis Psychiatric: anxiety Hematologic/Lymphatic: no easy bruising Allergic/Immunologic: no urticaria Exam - Constitutional Vitals: Temp Pulse Resp BP Pulse Ox 98.0 F 79 18 148/44 99 01/30/21 20:54 01/30/21 22:49 01/30/21 22:49 01/31/21 00:30 01/31/21 00:30 General appearance: Present: mild distress, well-nourished - EENT Eyes: Present: PERRL ENT: hearing intact, clear oral mucosa - Neck Neck: Present: supple, normal ROM - Respiratory Respiratory effort: normal Respiratory: bilateral: CTA - Cardiovascular Heart rate: 90 Heart Sounds: Present: S1 & S2. Absent: rub, click - Extremities Extremities: pulses symmetrical, No edema Peripheral Pulses: within normal limits - Abdominal General gastrointestinal: Present: soft, non-tender, non-distended, normal bowel sounds Female genitourinary: Present: normal - Integumentary Integumentary: Present: clear, warm, dry - Musculoskeletal Musculoskeletal: gait normal, strength equal bilaterally - Psychiatric Psychiatric: appropriate mood/affect, intact judgment & insight, cooperative - Neurologic Neurologic: CNII-XII intact, moves all extremities - Allied Health Allied health notes reviewed: nursing Results - Labs CBC & Chem 7: 01/30/21 22:32 01/30/21 22:32 Labs: Abnormal lab results 01/30/21 01/30/21 Range/Units 22:32 22:32 RBC 3.32 L (3.65-5.03) M/mm3 Hgb 10.0 L (10.1-14.3) gm/dl Hct 29.8 L (30.3-42.9) % RDW 16.4 H (13.2-15.2) % [place] % (Auto) 10.5 H (0.0-7.3) % [place] % (Auto) 6.2 H (0.0-4.3) % Sodium 134 L (137-145) mmol/L Potassium 5.5 H (3.6-5.0) mmol/L Chloride 91.2 L (98-107) mmol/L BUN 61 H (7-17) mg/dL Creatinine 12.6 H (0.6-1.2) mg/dL Assessment and Plan - Patient Problems (1) End-stage renal disease needing dialysis Current Visit: Yes Status: Acute Plan to address problem: Patient HD HD in am Product Marketing Consultant consult (2) Hyperkalemia Current Visit: Yes Status: Acute Plan to address problem: Given Insulin and dextrose in ED Monitor potassium level (3) Hypertensive urgency Current Visit: Yes Status: Acute Plan to address problem: Monitor blood pressure resume home antihypertensive (4) DVT prophylaxis Current Visit: No Status: Acute Plan to address problem: Subcutaneous heparin
[2021-01-31] MEDS ORDERED: MAGNESIUM HYDROXIDE (MOM) ORAL LIQD UDC PO PRN (01:18)
[2021-01-31] MEDS ORDERED: ACETAMINOPHEN 325 MG TAB PO PRN (01:18)
[2021-01-31] MEDS ORDERED: ONDANSETRON 4 MG/2 ML INJ IV PRN (01:18)
[2021-01-31] MEDS ORDERED: ALUM-MAG HYDROXIDE-SIMETHICONE 200-200-20MG/5ML ORAL LIQD 30 ML PO PRN (01:18)
[2021-01-31] MEDS ORDERED: SENNOSIDES 8.6 MG TAB PO PRN (01:18)
[2021-01-31] MEDS ORDERED: hydrALAZINE 20 MG/1 ML INJ IV PRN (01:18)
[2021-01-31] MEDS ORDERED: SODIUM CHLORIDE 0.9% 100 ML IV PRN (08:30)
[2021-01-31] MEDS ORDERED: HEPARIN 10,000 UNITS/10 ML VIAL IV PRN (08:30)
--- NOTE | 2021-01-31 08:32 | Consultation ---
History of Present Illness - Reason for Consult Consult date: 01/31/21 end stage renal disease, hyperkalemia Past History Past Medical History: ESRD, hypertension Past Surgical History: No surgical history Social history: lives with family Family history: diabetes, hypertension (grand mother) Medications and Allergies Allergies Allergy/AdvReac Type Severity Reaction Status Date / Time Penicillins Allergy Unknown Verified 05/28/19 14:24 Home Medications Medication Instructions Recorded Confirmed Last Taken Type Amlodipine Besylate [Norvasc] 10 mg PO DAILY #120 tablet 01/31/21 Unknown Rx Ergocalciferol [Vitamin D2] 50,000 units PO QWEEK #10 01/31/21 06/07/20 Unknown Rx busPIRone [Buspar] 5 mg PO QDAY #30 01/31/21 Unknown Rx carvediloL [Coreg] 25 mg PO BID #120 01/31/21 Unknown Rx lisinopriL [Zestril TAB] 20 mg PO QDAY #90 01/31/21 Unknown Rx Active Meds: Active Medications Acetaminophen (Acetaminophen 325 Mg Tab) 650 mg PO Q4H PRN PRN Reason: Pain MILD(1-3)/Fever >100.5/LUGO Last Admin: 01/31/21 01:45 Dose: 650 mg Documented by: Al Hydrox/Mg Hydrox/Simethicone (Alum-Mag Hydroxide-Simethicone [phone]/5ml Oral Liqd 30 Ml) 30 ml PO Q4H PRN PRN Reason: Indigestion Buspirone HCl (Buspirone 5 Mg Tab) 5 mg PO DAILY PAULETTE Carvedilol (Carvedilol 25 Mg Tab) 25 mg PO BID PAULETTE Clonidine HCl (Clonidine Tts 0.1 Mg/24 Hr Patch) 0.1 mg TD QDAY PAULETTE Famotidine (Famotidine 10 Mg Tab) 10 mg PO BID PAULETTE Heparin Sodium (Porcine) (Heparin 5,000 Unit/1 Ml Vial) 5,000 unit SUB-Q Q12HR PAULETTE Hydralazine HCl (Hydralazine 20 Mg/1 Ml Inj) 5 mg IV Q4HR PRN PRN Reason: Hypertension Lisinopril (Lisinopril 20 Mg Tab) 20 mg PO QDAY PAULETTE Magnesium Hydroxide (Magnesium Hydroxide (Mom) Oral Liqd Udc) 30 ml PO Q4H PRN PRN Reason: Constipation Ondansetron HCl (Ondansetron 4 Mg/2 Ml Inj) 4 mg IV Q8H PRN PRN Reason: Nausea And Vomiting Senna (Sennosides 8.6 Mg Tab) 8.6 mg PO Q12HR PRN PRN Reason: Constipation Exam - Vital Signs Vital signs: Vital Signs Temp Pulse Resp BP Pulse Ox 98.0 F 78 16 178/90 99 01/30/21 20:54 01/30/21 20:54 01/30/21 20:54 01/30/21 20:54 01/30/21 20:54 Results - Lab Results 01/30/21 22:32 01/31/21 08:42 Most recent lab results Calcium 8.7 mg/dL (8.4-10.2) 01/30/21 22:32 Assessment and Plan Subjective: Patient was seen and examined at the bedside. Objective: General appearance: well-developed, appears stated age, no distress noted HEENT: ATNC, ELIANE Neck: trachea midline Respiratory: ctab Heart: regular, S1S2, no murmur Gastrointestinal: soft, normoactive bowel sounds, not tender Integumentary: no rash, warm and dry Ext: no edema Neurologic: AO, non-focal Ext: no edema Hemodialysis access: L IJ tunnel catheter
[2021-01-31 09:19] LABS: Calcium 9.2 mg/dL (8.4-10.2)
[2021-01-31] MEDS ORDERED: FAMOTIDINE 20 MG TAB PO SCH (10:00)
[2021-01-31] MEDS ORDERED: FAMOTIDINE 10 MG TAB PO SCH (10:00)
[2021-01-31] MEDS ORDERED: busPIRone 5 MG TAB PO SCH (10:00)
[2021-01-31] MEDS ORDERED: cloNIDine TTS 0.1 MG/24 HR PATCH TD SCH (10:00)
[2021-01-31] MEDS ORDERED: HEPARIN 5,000 UNIT/1 ML VIAL SUB-Q SCH (10:00)
[2021-01-31] MEDS ORDERED: carvediloL 25 MG TAB PO SCH (10:00)
[2021-01-31] MEDS ORDERED: LISINOPRIL 20 MG TAB PO SCH (10:00)
--- NOTE | 2021-01-31 13:45 | Discharge Summary ---
Providers - Providers Date of Admission: 01/31/21 00:50 Date of discharge: 01/31/21 Attending physician: MAYLIN CELAYA 01/31/21 00:03 Consult to Physician [CONS] Stat Comment: Dr. Nunes spoke with Dr. Shine @ 0001 Consulting Provider: SELENE SHINE Physician Instructions: Reason For Exam: hyperkalemia Primary care physician: COIL STRAPPER Hospitalization Condition: Stable Pertinent studies: CXR Hospital course: This is a 50-year-old female with history of end-stage renal disease on TTS dialysis schedule, HIV, hypertension, anxiety presented to the ER with shortness of breath, nausea and vomiting. ED work-up showed WBC 5.5, hemoglobin 10.0, sodium 134, potassium 5.5 Creatinine 12.6, glucose 98, calcium 8.7 Chest x-ray no acute finding. On admission blood pressure was 178 x 90. Patient was admitted to the hospital for further evaluation and management. Nephrology was consulted for hemodialysis. Patient stated that she was running out of her blood pressure medications. Her home medications were resumed to blood pressure stabilized, patient received hemodialysis. She was clinically stable, she was tolerating, nausea vomiting resolved. Repeat BMP showed normal potassium. She was counseled for compliance and was discharged home in stable condition with outpatient follow-up. Disposition: DC-01 TO HOME OR [facility] Final Discharge Diagnosis (Prints w/discharge instructions): End-stage renal disease needing hemodialysis. Respiratory distress due to volume overload. Hyperkalemia status post insulin and dextrose in the ED-resolved. Hypertensive urgency Time spent for discharge: 34 minutes Core Measure Documentation - Palliative Care Palliative Care/ Comfort Measures: Not Applicable - Core Measures Any of the following diagnoses?: history only Exam - Physical Exam Narrative exam: GENERAL: well-developed and well-nourished -[place]ian female lying on bed appeared to be in no discomfort. HEENT: Normocephalic. Atraumatic. No conjunctival congestion or icterus. Patient has moist mucous membranes. NECK: Supple. Trachea midline. CHEST/LUNGS: Clear to auscultated bilaterally, breathing nonlabored. No wheezes crackles or rhonchi. HEART/CARDIOVASCULAR: Regular in rate and rhythm. S1 and S2 positive. ABDOMEN: Abdomen is soft, nontender. Patient has normal bowel sounds. SKIN: There is no rash. Warm and dry. NEURO: No focal motor deficit. Follows command. MUSCULOSKELETAL: No joint effusion or tenderness. EXTRIMITY: No edema, no cyanosis or clubbing. PSYCH: Cooperative. - Constitutional Vitals: Temp Pulse Resp BP Pulse Ox 97.7 F 92 H 16 159/82 98 01/31/21 07:05 01/31/21 10:27 01/31/21 07:05 01/31/21 10:27 01/31/21 10:27 Plan Activity: advance as tolerated Weight Bearing Status: Weight Bear as Tolerated Diet: renal Special Instructions: restrict fluid intake to (1.2 L daily), record daily BP diary Follow up with: PRIMARY CARE, [Primary Care Provider] - 3-5 Days SELENE SHINE MD [Staff Physician] - 7 Days Prescriptions: busPIRone [Buspar] 5 mg PO QDAY #30 carvediloL [Coreg] 25 mg PO BID #120 Amlodipine Besylate [Norvasc] 10 mg PO DAILY #120 tablet lisinopriL [Zestril TAB] 20 mg PO QDAY #90
[2021-01-31 14:41] LABS: Hepatitis B Surface Antigen Non-Reactive (Negative); Hepatitis C Virus Antibody Non-Reactive (NonReactive)
[2021-01-31 18:13] VITALS: BP 168/102
== END 2021-01-31 23:00 | disposition home or self-care (01) ==
LOC: ED 19:28 → 4A 01-31 00:50
PROVIDERS: ADMIT Internal Medicine Geriatric Medicine; ATTEND Internal Medicine
DX: E87.70 Fluid overload, unspecified (principal); I16.0 Hypertensive urgency; I12.0 Hypertensive chronic kidney disease with stage 5 chronic kidney disease or end stage renal disease; N18.6 End stage renal disease; E87.5 Hyperkalemia; F41.9 Anxiety disorder, unspecified; R06.03 Acute respiratory distress; Z21 Asymptomatic human immunodeficiency virus [HIV] infection status; Z99.2 Dependence on renal dialysis; Z79.899 Other long term (current) drug therapy
CPT/HCPCS: 36415; 71046; 80048; 80074; 85025; 96374; 96375; 96376; 99291; G0257; G0378; J0360; J0610; J1815

== ENCOUNTER 2021-04-17 10:53 | Emergency (ER) | payer MEDICARE ==
[2021-04-17 10:59] VITALS: BP 170/70
--- NOTE | 2021-04-17 11:04 | Emergency Department Report ---
Blank Doc - Documentation Documentation: 51-year-old female with end-stage renal disease on dialysis with complaint of bilateral leg swelling and fluid overload. Stated missed her dialysis. 1- This is a initial triage assessment/medical screening only. Full assessment and work-up will be completed once the patient is in proper hospital gown, ED bed and in a private room setting. This initial assessment/diagnostic orders/clinical plan/ treatment(s) is/are subject to change based on pt's health status, clinical progression and re-assessment by fellow clinical providers in the ED. Further treatment and workup at subsequent clinical providers discretion. Patient/guardians urged not to elope from ED as their condition may be serious if not clinically assessed and managed. 2-labs/ekg/imaging studies
--- NOTE | 2021-04-17 11:31 | XRay Report ---
XR chest routine 2V INDICATION / CLINICAL INFORMATION: leg swelling r/o chf. COMPARISON: 01/30/2021 FINDINGS: SUPPORT DEVICES: Left central venous catheter is been removed. HEART /PULMONARY VASCULATURE: There is cardiac enlargement with mild congestion of pulmonary vasculat ure. LUNGS / PLEURA: Mild increased bibasilar interstitial opacities. There is stable right pleural thicke delmi, though no pleural effusion is seen bilaterally. No pneumothorax. ADDITIONAL FINDINGS: No significant additional findings. IMPRESSION: CHF/volume overload with mild bibasilar interstitial edema. Signer Name: Lacho Major MD Signed: 04/17/2021 11:26 AM Workstation Name: [id number]
[2021-04-17 12:06] LABS: Basophils % (Auto) 0.7 % (0.0-1.8); Eosinophils # (Auto) 0.3 K/mm3 (0.0-0.4); Eosinophils % (Auto) 5.5 % (0.0-4.3); Hemoglobin 7.8 gm/dl (10.1-14.3); Lymphocytes # (Auto) 1.1 K/mm3 (1.2-5.4); Lymphocytes % (Auto) 21.9 % (13.4-35.0); Mean Corpuscular HGB Conc 32 % (30-34); Mean Corpuscular Volume 90 fl (79-97); Monocytes # (Auto) 0.4 K/mm3 (0.0-0.8); Monocytes % (Auto) 7.3 % (0.0-7.3); Red Blood Count 2.66 M/mm3 (3.65-5.03); Red Cell Distribution Width 16.2 % (13.2-15.2)
[2021-04-17 12:10] LABS: Platelet Count 97 K/mm3 (140-440)
[2021-04-17 12:47] LABS: Albumin 3.9 g/dL (3.9-5); Calcium 10.6 mg/dL (8.4-10.2)
== END 2021-04-17 19:00 | disposition left against medical advice (07) ==
LOC: ED 10:53
DX: M79.89 Other specified soft tissue disorders (principal); Z53.21 Procedure and treatment not carried out due to patient leaving prior to being seen by health care provider
CPT/HCPCS: 36415; 71046; 80053; 83880; 85025